=== PATIENT | female | born 1990 | race Caucasian/White ===

== ENCOUNTER → 2016-08-30 | Outpatient (CLI) | payer OTHER ==
[~2016-08-30] MED LIST: AMOX875T PO; BCPILLS PO; CITA20TA9 PO; OXYC-57 PO
== END | disposition home or self-care (01) ==
LOC: C.PAPS 13:48
PROVIDERS: ATTEND Physician Assistant
DX: Z12.4 Encounter for screening for malignant neoplasm of cervix (principal)

== ENCOUNTER 2017-03-07 09:14 | Inpatient (IN) | payer OTHER ==
[~2017-03-07] VITALS: Ht 162.6 cm; Wt 64.1 kg
[2017-03-07] MEDS ORDERED: BCPILLS PO (09:32)
[2017-03-07] MEDS ORDERED: CITA20TA9 PO (09:32)
[2017-03-07] MEDS ORDERED: SODIUM CHLORIDE 0.9% 1000ML 1,000 ML IV STA (09:47)
[2017-03-07] MEDS ORDERED: KETOROLAC TROMETHAMINE 30 MG/ML VIAL IV STA (09:47)
--- NOTE | 2017-03-07 09:54 | EMERGENCY ROOM VISIT NOTE ---
History Report prepared by Ej: Francisco Calderón Under the Supervision of: Dr. Silvano Quintanilla M.D. First contact with patient: 09:43 Chief Complaint: ABDOMINAL PAIN Stated Complaint: ABD PAIN Nursing Triage Summary: pt reports abd cramping started tuesday night. denies any n/v/d/c History of Present Illness The patient is a 27 year old female who presents to the Emergency Room with complaints of worsening mid abdominal pain that began 5 days ago. She rates her pain an 8/10 in severity. When her pain began, it was occurring intermittently. However, two days ago it became constant. Her pain is exacerbated with bending down to her right side. Nothing has been making her pain better. She is also experiencing nausea. She denies any fevers, chills, nausea, vomiting, diarrhea, or abnormal urinary symptoms. She has not had much of an appetite but has been keeping up with her fluids. Her last menstrual cycle was two days ago. She has not taken any medications for her pain. She states that she has been evaluated in the past before for similar symptoms, but has not had any official diagnosis. Source of History: patient Onset: 5 days ago Position: abdomen (mid) Symptom Intensity: 8/10 Quality: sharp Timing: constant, worsening Modifying Factors (Worsening): movement (bending down to her right) Associated Symptoms: No fevers, No chills, No nausea, No vomiting, No diarrhea, No urinary symptoms Note: She has not had much of an appetite. Review of Systems See HPI for pertinent positives and negatives. A total of ten systems were reviewed and were otherwise negative. Past Medical & Surgical Medical Problems: (1) No Known Active Medical Problems Family History Patient reports no known family medical history. Social History Smoking Status: Never Smoker Smokeless Tobacco Use: No Drug Use: none Marital Status: Current/Historical Medications Scheduled Control Pills ( Control Pills), 1 TAB PO DAILY Citalopram Hydrobromide (Celexa), 20 MG PO DAILY Allergies Coded Allergies: No Known Allergies (Unverified , 03/07/17) Physical Exam Vital Signs Date Time Temp Pulse Resp B/P (MAP) Pulse Ox O2 Delivery O2 Flow Rate FiO2 03/07/17 16:00 37.2 118 18 131/80 (97) 97 Room Air 03/07/17 15:54 36.7 112 18 113/81 98 03/07/17 15:04 112 18 113/81 98 Room Air 03/07/17 14:00 107 18 117/78 97 Room Air 03/07/17 12:06 101 20 98/63 98 Room Air 03/07/17 10:14 102 03/07/17 09:15 36.7 125 18 127/85 99 Room Air Physical Exam GENERAL: Awake, alert, relatively well-appearing, in no distress HENT: Normocephalic, atraumatic. Oropharynx unremarkable. EYES: Normal conjunctiva. Sclera non-icteric. NECK: Supple. No nuchal rigidity. FROM. No JVD. RESPIRATORY: Clear to auscultation. CARDIAC: Regular rate, normal rhythm. Extremities warm and well perfused. Pulses equal. ABDOMEN: Soft, non-distended. Mild RLQ tenderness to palpation. No rebound or guarding. No masses. No peritoneal sings. Negative Garcia's, Rovsing's, and Psoas signs. RECTAL: Deferred. MUSCULOSKELETAL: Chest examination reveals no tenderness. The back is symmetrical on inspection without obvious abnormality. There is no CVA tenderness to palpation. No joint edema. LOWER EXTREMITIES: Calves are equal size bilaterally and non-tender. No edema. No discoloration. NEURO: Normal sensorium. No sensory or motor deficits noted. SKIN: No rash or jaundice noted. Medical Decision & Procedures ER Provider Diagnostic Interpretation: Radiology results as stated below per my review and radiologist interpretation: PELVIC COMPLETE NON OB CLINICAL HISTORY: RLQ pain PAIN COMPARISON STUDY: None FINDINGS: The uterus measured 7.0 cm. The endometrial stripe measured 5 mm. The right ovary measured 3 cm maximum dimension. Several small subcentimeters follicular cyst. Normal vascular flow.. The left ovary measured 3.3 cm at maximum with several small subcentimeter follicular cysts. Normal vascular flow. 2.5 x 2.3 cm simple cyst.. There is no ultrasonographic evidence of ovarian torsion. It should be noted that ovarian torsion can be present with normal Doppler ultrasonographic findings. There was no evidence of pathologic free pelvic fluid. IMPRESSION: 1. Small bilateral ovarian follicular cyst. 2. 2.5 cm simple left ovarian cyst. 3. Normal vascular flow to both ovaries is confirmed. The above report was generated using voice recognition software. It may contain grammatical, syntax or spelling errors. Electronically signed by: Favian Marcum M.D. 03/07/2017 11:10 AM Dictated Date/Time: 03/07/2017 11:[address] OF THE ABDOMEN AND PELVIS WITH CONTRAST CLINICAL HISTORY: Right lower quadrant abdominal pain. COMPARISON STUDY: Pelvic ultrasound performed earlier today. TECHNIQUE: Following IV administration of 93 mL of Optiray-320, axial images of the abdomen and pelvis were obtained from the lung bases to the proximal femurs. Images were reviewed in the axial, sagittal, and coronal planes. IV contrast was administered without complication. A dose lowering technique was utilized adhering to the principles of ALARA. CT DOSE: 451.68 mGycm FINDINGS: The liver, spleen, adrenal glands, kidneys and pancreas are normal. There is no biliary or pancreatic ductal dilatation. Major vasculature of the abdomen and pelvis is patent. The proximal appendix is mildly dilated, measuring 1.1 cm in caliber. Of note, there is extensive inflammation centered on the appendiceal tip with an associated 2.6 cm rim-enhancing periappendiceal fluid collection. This could reflect a portion of the appendix. This suggests a periappendiceal abscess. There are multiple mildly enlarged ileocolic lymph nodes which are likely reactive. There is a small amount of fluid within the right paracolic gutter. A small amount of fluid within the pelvis is noted. There is a left ovarian cyst. There is no bowel obstruction. No pneumatosis, free air or portal venous gas is present. There are no suspicious osseous lesions. IMPRESSION: Findings suggestive of perforated acute appendicitis with a 2.6 cm periappendiceal abscess located anterior to the right iliac vessels. Extensive adjacent inflammation and small amount of fluid within the right paracolic gutter and pelvis. Findings discussed with Dr. Quintanilla at time of dictation. Electronically signed by: Hever Simeon M.D. 03/07/2017 2:06 PM Dictated Date/Time: 03/07/2017 1:59 PM Laboratory Results 03/07/17 09:50 Red Blood Count 4.83, Mean Corpuscular Volume 92.5, Mean Corpuscular Hemoglobin 32.5, Mean Corpuscular Hemoglobin Concent 35.1, Mean Platelet Volume 10.4, Neutrophils (%) (Auto) 81.5, Lymphocytes (%) (Auto) 8.5, Monocytes (%) (Auto) 9.3, Eosinophils (%) (Auto) 0.1, Basophils (%) (Auto) 0.1, Neutrophils # (Auto) 18.06, Lymphocytes # (Auto) 1.88, Monocytes # (Auto) 2.07, Eosinophils # (Auto) 0.03, Basophils # (Auto) 0.02 03/07/17 09:50 Test 03/07/17 09:50 03/07/17 12:00 White Blood Count 22.16 K/uL (4.8-10.8) Red Blood Count 4.83 M/uL (4.2-5.4) Hemoglobin 15.7 g/dL (12.0-16.0) Hematocrit 44.7 % (37-47) Mean Corpuscular Volume 92.5 fL (80-100) Mean Corpuscular Hemoglobin 32.5 pg (25-34) Mean Corpuscular Hemoglobin Concent 35.1 g/dl (32-36) Platelet Count 223 K/uL (130-400) Mean Platelet Volume 10.4 fL (7.4-10.4) Neutrophils (%) (Auto) 81.5 % Lymphocytes (%) (Auto) 8.5 % Monocytes (%) (Auto) 9.3 % Eosinophils (%) (Auto) 0.1 % Basophils (%) (Auto) 0.1 % Neutrophils # (Auto) 18.06 K/uL (1.4-6.5) Lymphocytes # (Auto) 1.88 K/uL (1.2-3.4) Monocytes # (Auto) 2.07 K/uL (0.11-0.59) Eosinophils # (Auto) 0.03 K/uL (0-0.5) Basophils # (Auto) 0.02 K/uL (0-0.2) RDW Standard Deviation 39.8 fL (36.4-46.3) RDW Coefficient of Variation 11.7 % (11.5-14.5) Immature Granulocyte % (Auto) 0.5 % Immature Granulocyte # (Auto) 0.10 K/uL (0.00-0.02) Anion Gap 11.0 mmol/L (3-11) Est Creatinine Clear Calc Drug Dose 95.7 ml/min Estimated GFR () 123.5 Estimated GFR (Non- 106.6 BUN/Creatinine Ratio 10.3 (10-20) Calcium Level 9.4 mg/dl (8.5-10.1) Total Bilirubin 1.0 mg/dl (0.2-1) Direct Bilirubin 0.2 mg/dl (0-0.2) Aspartate Amino Transf (AST/SGOT) 15 U/L (15-37) Alanine Aminotransferase (ALT/SGPT) 16 U/L (12-78) Alkaline Phosphatase 73 U/L (45-117) Total Protein 8.3 gm/dl (6.4-8.2) Albumin 3.7 gm/dl (3.4-5.0) Lipase 90 U/L (73-393) Urine Color DK YELLOW Urine Appearance CLOUDY (CLEAR) Urine pH 5.5 (4.5-7.5) Urine Specific [place] 1.027 (1.000-1.030) Urine Protein 1+ (NEG) Urine Glucose (UA) NEG (NEG) Urine Ketones 4+ (NEG) Urine Occult Blood TRACE (NEG) Urine Nitrite NEG (NEG) Urine Bilirubin NEG (NEG) Urine Urobilinogen NEG (NEG) Urine Leukocyte Esterase NEG (NEG) Urine WBC (Auto) 1-5 /hpf (0-5) Urine RBC (Auto) 5-10 /hpf (0-4) Urine Hyaline Casts (Auto) 5-10 /lpf (0-5) Urine Epithelial Cells (Auto) >30 /lpf (0-5) Urine Bacteria (Auto) 1+ (NEG) Urine Test NEG (NEG) Laboratory results reviewed by me Medications Administered Medications (Trade) Dose Ordered Sig/Jan Route Start Time Stop Time Status Last Admin Dose Admin Sodium Chloride 1,000 ml @ 999 mls/hr Q1H1M STAT IV 03/07/17 09:47 03/07/17 10:47 DC 03/07/17 10:05 999 MLS/HR Ketorolac Tromethamine (Toradol Inj) 15 mg NOW STAT IV 03/07/17 09:47 03/07/17 09:53 DC 03/07/17 10:06 15 MG Piperacillin Sod/ Tazobactam Sod (Zosyn Iv) 3.375 gm NOW STAT IV 03/07/17 14:04 03/07/17 14:05 DC 03/07/17 14:56 3.375 GM ED Course 0943: The patient was evaluated in room B9. A complete history and physical exam was performed. 1408: Upon reexamination, the patient was resting. I discussed the test results and treatment plan with her. I discussed her case with Yasmine Garcia PA-C of the [facility] Service. The patient will be evaluated for further management. Medical Decision I reviewed the patient's past medical history, medications, and the nursing notes as described above. Differential diagnosis includes but is not limited to: ectopic , hemorrhagic ovarian cyst, ovarian torsion, UTI, pyelonephritis, ureteral stone, appendicitis, and gastroenteritis. The patient is a 27-year-old woman with a past medical history of question endometriosis presents to emergency department with right lower quadrant pain that his been ongoing since Tuesday per history of present illness. Patient reports decreased appetite but no nausea or vomiting. Has been able to drink. Arrival the patient is relatively well-appearing, in no acute distress, AFVSS. Exam the patient has mild right lower quadrant tenderness without any peritoneal signs. Negative Dumont, Rovsings, Paoas sign. I discussed with the patient plan for pelvic ultrasound initially to rule out any ovarian etiology however if negative will proceed with CT scan. WBC subsequently elevated to 22. Pelvic ultrasound without any right-sided findings to explain the patient's symptoms. Thus, CT was ordered and showed of perforated acute appendicitis with a 2.6 cm periappendiceal abscess. Patient was given IV Zosyn for complicated appendicitis and case was discussed with surgery team. Dr. Mayfield admitting the patient to the OR. Medication Reconcilliation Current Medication List: was personally reviewed by me Blood Pressure Screening Patient's blood pressure: Normal blood pressure Blood pressure disposition: Did not require urgent referral Consults Time Called: 1404 Consulting Physician: Yasmine Garcia PA-C [facility] Returned Call: 1408 I discussed the patient with her - She will evaluate the patient for further treatment. Impression Primary Impression: Perforated appendicitis Critical Care I have personally spent greater than 35 minutes of critical care time in the direct management of this patient. This includes bedside care, interpretation of diagnostic studies, and testing, discussion with consultants, patient, and family members, and other required patient management activities. This 35 minutes is in excess of all separately billable procedures. Scribe Attestation The scribe's documentation has been prepared under my direction and personally reviewed by me in its entirety. I confirm that the note above accurately reflects all work, treatment, procedures, and medical decision making performed by me. Departure Information Dispostion Being Evaluated By Hospitalist Referrals Rosalinda Resendez DO (PCP) Patient Instructions My [facility]
[2017-03-07 10:23] LABS: BASO % 0.1 %; BASO ABS # 0.02 K/uL (0-0.2); COMPLETE YES; EOS % 0.1 %; HEMATOCRIT 44.7 % (37-47); IG% 0.5 %; LYMPH % 8.5 %; LYMPH ABS # 1.88 K/uL (1.2-3.4); MEAN CELL VOLUME 92.5 fL (80-100); MEAN CORPUSCULAR HEMOGLOBIN 32.5 pg (25-34); MEAN CORPUSCULAR HGB CONC 35.1 g/dl (32-36); MEAN PLATELET VOLUME 10.4 fL (7.4-10.4); MONO % 9.3 %; NEUT % 81.5 %; PLATELET COUNT 223 K/uL (130-400); RED BLOOD COUNT 4.83 M/uL (4.2-5.4); WHITE BLOOD COUNT 22.16 K/uL (4.8-10.8)
[2017-03-07 10:33] LABS: BUN/CREATININE RATIO 10.3 (10-20); CALCIUM 9.4 mg/dl (8.5-10.1); CREATININE 0.77 mg/dl (0.60-1.20); POTASSIUM 3.6 mmol/L (3.5-5.1)
--- NOTE | 2017-03-07 11:11 | DIAGNOSTIC IMAGING REPORT ---
PELVIC COMPLETE NON OB CLINICAL HISTORY: RLQ pain PAIN COMPARISON STUDY: None FINDINGS: The uterus measured 7.0 cm. The endometrial stripe measured 5 mm. The right ovary measured 3 cm maximum dimension. Several small subcentimeters follicular cyst. Normal vascular flow.. The left ovary measured 3.3 cm at maximum with several small subcentimeter follicular cysts. Normal vascular flow. 2.5 x 2.3 cm simple cyst.. There is no ultrasonographic evidence of ovarian torsion. It should be noted that ovarian torsion can be present with normal Doppler ultrasonographic findings. There was no evidence of pathologic free pelvic fluid. IMPRESSION: 1. Small bilateral ovarian follicular cyst. 2. 2.5 cm simple left ovarian cyst. 3. Normal vascular flow to both ovaries is confirmed. The above report was generated using voice recognition software. It may contain grammatical, syntax or spelling errors. Electronically signed by: Favian Marcum M.D. 03/07/2017 11:10 AM Dictated Date/Time: 03/07/2017 11:08 AM
[2017-03-07 12:24] LABS: URINE APPEARANCE CLOUDY (CLEAR); URINE COLOR DK YELLOW; URINE EPITHELIAL CELL AUTO >30 /lpf (0-5); URINE NITRITE NEG (NEG); URINE PH 5.5 (4.5-7.5); URINE SPECIFIC GRAVITY 1.027 (1.000-1.030); UROBILINOGEN NEG (NEG); ZZUR CULT IF INDIC CLEAN CATCH YES
[2017-03-07 12:26] LABS: MANUAL MICROSCOPIC REQUIRED? NO; REVIEW REQ? YES
[2017-03-07 12:29] LABS: URINE BILIRUBIN NEG (NEG)
[2017-03-07] MEDS ORDERED: OPTIRAY 320 IV PRN (13:30)
[2017-03-07] MEDS ORDERED: PIPERACILLIN/TAZOBACTAM 3.375 GM/100ML D5W IV STA (14:04)
--- NOTE | 2017-03-07 14:08 | DIAGNOSTIC IMAGING REPORT ---
CT OF THE ABDOMEN AND PELVIS WITH CONTRAST CLINICAL HISTORY: Right lower quadrant abdominal pain. COMPARISON STUDY: Pelvic ultrasound performed earlier today. TECHNIQUE: Following IV administration of 93 mL of Optiray-320, axial images of the abdomen and pelvis were obtained from the lung bases to the proximal femurs. Images were reviewed in the axial, sagittal, and coronal planes. IV contrast was administered without complication. A dose lowering technique was utilized adhering to the principles of ALARA. CT DOSE: 451.68 mGycm FINDINGS: The liver, spleen, adrenal glands, kidneys and pancreas are normal. There is no biliary or pancreatic ductal dilatation. Major vasculature of the abdomen and pelvis is patent. The proximal appendix is mildly dilated, measuring 1.1 cm in caliber. Of note, there is extensive inflammation centered on the appendiceal tip with an associated 2.6 cm rim-enhancing periappendiceal fluid collection. This could reflect a portion of the appendix. This suggests a periappendiceal abscess. There are multiple mildly enlarged ileocolic lymph nodes which are likely reactive. There is a small amount of fluid within the right paracolic gutter. A small amount of fluid within the pelvis is noted. There is a left ovarian cyst. There is no bowel obstruction. No pneumatosis, free air or portal venous gas is present. There are no suspicious osseous lesions. IMPRESSION: Findings suggestive of perforated acute appendicitis with a 2.6 cm periappendiceal abscess located anterior to the right iliac vessels. Extensive adjacent inflammation and small amount of fluid within the right paracolic gutter and pelvis. Findings discussed with Dr. Quintanilla at time of dictation. Electronically signed by: Hever Simeon M.D. 03/07/2017 2:06 PM Dictated Date/Time: 03/07/2017 1:59 PM
--- NOTE | 2017-03-07 15:58 | Surgery Consultation ---
Consultation Date of Consultation: Mar 07, 2017. Attending Physician: History of Present Illness The patient is a 27 year old female who presents to the Emergency Room with complaints of worsening mid abdominal pain that began 5 days ago. She rates her pain an 8/10 in severity. When her pain began, it was occurring intermittently. However, two days ago it became constant. Her pain is exacerbated with bending down to her right side. Nothing has been making her pain better. She is also experiencing nausea. She denies any fevers, chills, nausea, vomiting, diarrhea, or abnormal urinary symptoms. She has not had much of an appetite but has been keeping up with her fluids. Her last menstrual cycle was two days ago. She has not taken any medications for her pain. She states that she has been evaluated in the past before for similar symptoms, but has not had any official diagnosis. I saw pt at ER, I reviewed history and physical exam with pt,pt is still have RLQ pain, Past Medical/Surgical History Medical Problems: (1) Perforated appendicitis Status: Acute Family History Patient reports no known family medical history. Social History Smoking Status: Never Smoker Smokeless Tobacco Use: No Drug Use: none Marital Status: Allergies Coded Allergies: No Known Allergies (Unverified , 03/07/17) Home Medications Scheduled Control Pills ( Control Pills), 1 TAB PO DAILY Citalopram Hydrobromide (Celexa), 20 MG PO DAILY Current Inpatient Medications Current Inpatient Medications Medications (Trade) Dose Ordered Sig/Jan Route Start Time Stop Time Status Last Admin Dose Admin Ioversol (Optiray 320) 100 ml UD PRN IV 03/07/17 13:30 03/11/17 13:29 Review of Systems Constitutional: No fever, No chills, No sweats, No weight loss, No weakness, No fatigue, No problem reported Eyes: No worsening of vision, No eye pain, No redness, No discharge, No diplopia, No problem reported ENT: No hearing loss, No unusual epistaxis, No nasal symptoms, No sore throat, No tinnitus, No dental problems, No trouble swallowing, No problem reported Respiratory: No cough, No sputum, No wheezing, No shortness of breath, No dyspnea on exertion, No dyspnea at rest, No hemoptysis, No problem reported Cardiovascular: No chest pain, No orthopnea, No PND, No edema, No claudication , No palpitations, No problem reported Abdomen: + pain, + nausea Musculoskeletal: No joint pain, No muscle pain, No swelling, No calf pain, No problem reported Genitourinary - Female: No dysuria, No urinary frequency, No urinary urgency, No urinary incontinence, No urinary retention, No hematuria, No dysmenorrhea, No menorrhagia, No metrorrhagia, No rash, No vaginal bleeding, No vaginal discharge, No vaginal itching, No vulvodynia, No , No problem reported Neurologic: No memory loss, No paralysis, No weakness, No numbness/tingling, No vertigo, No balance problems, No problem reported Psychiatric: No depression symptoms, No anhedonism, No anxiety, No insomnia, No substance abuse, No problem reported Endocrine: No fatigue, No excessive thirst, No excessive urination, No problem reported Hematologic / Lymphatic: No abnormal bleeding/bruising, No clotting problems, No swollen lymph nodes, No night sweats, No problem reported Physical Exam Date Time Temp Pulse Resp B/P (MAP) Pulse Ox O2 Delivery O2 Flow Rate FiO2 03/07/17 15:04 112 18 113/81 98 Room Air 03/07/17 14:00 107 18 117/78 97 Room Air 03/07/17 12:06 101 20 98/63 98 Room Air 03/07/17 10:14 102 03/07/17 09:15 36.7 125 18 127/85 99 Room Air General Appearance: WD/WN, + mild distress Head: normocephalic Eyes: normal inspection ENT: normal ENT inspection Neck: supple, no JVD Respiratory/Chest: chest non-tender, lungs clear Cardiovascular: regular rate, rhythm, no edema, no gallop, no JVD, no murmur Abdomen/GI: normal bowel sounds, no organomegaly, no pulsatile mass, + tenderness (At RLQwith rebound pain) Extremities/Musculoskelatal: normal inspection, no calf tenderness, normal capillary refill Neurologic/Psych: no motor/sensory deficits, alert, normal mood/affect Skin: normal color, warm/dry, no rash Laboratory Results Last 24 Hours Test 03/07/17 09:50 03/07/17 12:00 White Blood Count 22.16 K/uL Red Blood Count 4.83 M/uL Hemoglobin 15.7 g/dL Hematocrit 44.7 % Mean Corpuscular Volume 92.5 fL Mean Corpuscular Hemoglobin 32.5 pg Mean Corpuscular Hemoglobin Concent 35.1 g/dl Platelet Count 223 K/uL Mean Platelet Volume 10.4 fL Neutrophils (%) (Auto) 81.5 % Lymphocytes (%) (Auto) 8.5 % Monocytes (%) (Auto) 9.3 % Eosinophils (%) (Auto) 0.1 % Basophils (%) (Auto) 0.1 % Neutrophils # (Auto) 18.06 K/uL Lymphocytes # (Auto) 1.88 K/uL Monocytes # (Auto) 2.07 K/uL Eosinophils # (Auto) 0.03 K/uL Basophils # (Auto) 0.02 K/uL RDW Standard Deviation 39.8 fL RDW Coefficient of Variation 11.7 % Immature Granulocyte % (Auto) 0.5 % Immature Granulocyte # (Auto) 0.10 K/uL Sodium Level 134 mmol/L Potassium Level 3.6 mmol/L Chloride Level 99 mmol/L Carbon Dioxide Level 24 mmol/L Anion Gap 11.0 mmol/L Blood Urea Nitrogen 8 mg/dl Creatinine 0.77 mg/dl Est Creatinine Clear Calc Drug Dose 95.7 ml/min Estimated GFR () 123.5 Estimated GFR (Non- 106.6 BUN/Creatinine Ratio 10.3 Random Glucose 105 mg/dl Calcium Level 9.4 mg/dl Total Bilirubin 1.0 mg/dl Direct Bilirubin 0.2 mg/dl Aspartate Amino Transf (AST/SGOT) 15 U/L Alanine Aminotransferase (ALT/SGPT) 16 U/L Alkaline Phosphatase 73 U/L Total Protein 8.3 gm/dl Albumin 3.7 gm/dl Lipase 90 U/L Urine Color DK YELLOW Urine Appearance CLOUDY Urine pH 5.5 Urine Specific [employer] 1.027 Urine Protein 1+ Urine Glucose (UA) NEG Urine Ketones 4+ Urine Occult Blood TRACE Urine Nitrite NEG Urine Bilirubin NEG Urine Urobilinogen NEG Urine Leukocyte Esterase NEG Urine WBC (Auto) 1-5 /hpf Urine RBC (Auto) 5-10 /hpf Urine Hyaline Casts (Auto) 5-10 /lpf Urine Epithelial Cells (Auto) >30 /lpf Urine Bacteria (Auto) 1+ Urine Test NEG Assessment & Plan CT DOSE: 451.68 mGycm FINDINGS: The liver, spleen, adrenal glands, kidneys and pancreas are normal. There is no biliary or pancreatic ductal dilatation. Major vasculature of the abdomen and pelvis is patent. The proximal appendix is mildly dilated, measuring 1.1 cm in caliber. Of note, there is extensive inflammation centered on the appendiceal tip with an associated 2.6 cm rim-enhancing periappendiceal fluid collection. This could reflect a portion of the appendix. This suggests a periappendiceal abscess. There are multiple mildly enlarged ileocolic lymph nodes which are likely reactive. There is a small amount of fluid within the right paracolic gutter. A small amount of fluid within the pelvis is noted. There is a left ovarian cyst. There is no bowel obstruction. No pneumatosis, free air or portal venous gas is present. There are no suspicious osseous lesions. IMPRESSION: Findings suggestive of perforated acute appendicitis with a 2.6 cm periappendiceal abscess located anterior to the right iliac vessels. Extensive adjacent inflammation and small amount of fluid within the right paracolic gutter and pelvis. Findings discussed with Dr. Quintanilla at time of dictation. Assessment, pt is a 27 yo female who presents to ER for 5 days abdominal mpain, CT scan- finding see above. IMP: perforated appendicitis, with abscess, Plan, I recommend to do laparoscopic appendectomy, possible open, D/W benefits, risks and alternatives of the procedure, the risks -infection, bleeding, abscess , sepsis, injury bowel pt understood, she agrees with the plan, I answered all questions.
[2017-03-07] MEDS ORDERED: EpHEDrine SULFATE INJ 50 MG/ML AMP IV PRN (16:00)
[2017-03-07] MEDS ORDERED: ONDANSETRON INJ 2 MG/ML 2 ML VIAL IV PRN ×2 (16:00→19:15)
[2017-03-07] MEDS ORDERED: MoRPHine SULFATE 10 MG/ML CARP/VIAL IV PRN (16:00)
[2017-03-07] MEDS ORDERED: ATROPINE SULFATE 0.1 MG/ML 5ML SYR IV PRN (16:00)
[2017-03-07] MEDS ORDERED: MEPERIDINE HCL 25 MG/ML CARP IV PRN (16:00)
[2017-03-07] MEDS ORDERED: SUCCINYLCHOLINE CHLORIDE 20 MG/ML 10 ML VIAL IV ONE (16:05)
[2017-03-07] MEDS ORDERED: GLYCOPYRROLATE INJ 0.2 MG/ML VIAL ONE ×2 (16:05→18:12)
[2017-03-07] MEDS ORDERED: PHENYLEPHRINE HCL INJ 10 MG/ML VIAL ONE (16:05)
[2017-03-07] MEDS ORDERED: LIDOCAINE HCL 2% 2 ML VIAL (20MG/ML) ONE (16:05)
[2017-03-07] MEDS ORDERED: ONDANSETRON INJ 2 MG/ML 2 ML VIAL ONE (16:05)
[2017-03-07] MEDS ORDERED: EpHEDrine SULFATE INJ 50 MG/ML AMP ONE (16:05)
[2017-03-07] MEDS ORDERED: DEXAMETHASONE SOD INJ 4 MG/ML VIAL ONE (16:05)
[2017-03-07] MEDS ORDERED: PROPOFOL IV EMULSION 10 MG/ML 20 ML VIAL IV ONE (16:05)
[2017-03-07] MEDS ORDERED: NEOSTIGMINE METHYLSULFATE 5 MG/5 ML SYR ONE (16:05)
[2017-03-07] MEDS ORDERED: FENTANYL CITRATE INJ 50 MCG/1 ML 2 ML VIAL ONE ×2 (16:08→17:33)
[2017-03-07] MEDS ORDERED: MIDAZOLAM HCL 1 MG/ML 2ML VIAL ONE (16:08)
[2017-03-07] MEDS ORDERED: LIDOCAINE HCL 1% 20 ML VIAL ONE (16:11)
[2017-03-07] MEDS ORDERED: BACITRACIN OINT 15 GM TUBE ONE (16:12)
[2017-03-07] MEDS ORDERED: BUPIVACAINE 0.5 % 5 MG/1 ML MPF 30ML VIAL ONE (16:12)
[2017-03-07] MEDS ORDERED: LACTATED RINGER'S 1000ML 1,000 ML IV SCH (16:20)
[2017-03-07] MEDS ORDERED: CEFOXITIN SOD 2 GM VIAL IV STA (16:28)
--- NOTE | 2017-03-07 16:28 | History & Physical Bridge Note ---
H&P Re-Evaluation Bridge Note: I have examined the patient, reviewed the History & Physical and in the interval since the performance of the History & Physical I have noted the following changes of clinical significance: No changes noted
[2017-03-07] MEDS ORDERED: NURSING VERBAL MED ORDER ONE (16:30)
[2017-03-07] MEDS ORDERED: CEFOXITIN IV 2,000 MG in SYRINGE 11 ML IV SCH (16:45)
--- NOTE | 2017-03-07 19:09 | [facility] Post Operative Brief Note ---
Immediate Operative Summary Operative Date Mar 07, 2017. Pre-Operative Diagnosis Acute perforated Appendicitis with abscess Post-Operative Diagnosis Acute Perforated Appendicitis with abcess Procedure(s) Performed Laparoscopic Appendectomy with JESSI drain Surgeon Dr. Mayfield Roper Operator Surgeon(s) none Estimated Blood Loss 10 ml Findings acute perforated appendicitis with abscess Fluids (cc crystalloids) 1000ml Specimens Microbiology Specimen 1. Appendix abcess-for routine culture per Dr. Mayfield Drains JESSI X 1 Anesthesia general Complication(s) None Disposition Recovery Room / PACU
[2017-03-07] MEDS ORDERED: HYDROmorphone INJ 1 MG/ML SYR IV PRN (19:15)
--- NOTE | 2017-03-07 19:34 | Anesthesiology Progress Note ---
Anesthesia Post Op Note Date & Time Mar 07, 2017 at 19:34 Vital Signs Pain Intensity: 3.0 Vital Signs Past 12 Hours Date Time Temp Pulse Resp B/P (MAP) Pulse Ox O2 Delivery O2 Flow Rate FiO2 03/07/17 16:00 37.2 118 18 131/80 (97) 97 Room Air 03/07/17 15:54 36.7 112 18 113/81 98 03/07/17 15:04 112 18 113/81 98 Room Air 03/07/17 14:00 107 18 117/78 97 Room Air 03/07/17 12:06 101 20 98/63 98 Room Air 03/07/17 10:14 102 03/07/17 09:15 36.7 125 18 127/85 99 Room Air Notes Mental Status: alert / awake / arousable, participated in evaluation Pt Amnestic to Procedure: Yes Nausea / Vomiting: adequately controlled Pain: adequately controlled Airway Patency, RR, SpO2: stable & adequate BP & HR: stable & adequate Hydration State: stable & adequate Anesthetic Complications: no major complications apparent
[2017-03-07] MEDS: FENTANYL CITRATE INJ 50 MCG/1 ML 2 ML VIAL IV PRN ×4 (19:36→19:57)
[2017-03-07 20:30] VITALS: BP 112/74; PULSE 95; TEMP 37.4; O2SAT 96; Ht 162.6 cm; Wt 64.1 kg
[2017-03-07 21:00] VITALS: BP 104/69; PULSE 95; TEMP 37.4; O2SAT 95
[2017-03-07] MEDS: OXYCODONE/ACETAMINOPHEN 5-325 TAB PO PRN (21:09)
--- NOTE | 2017-03-07 21:09 | OPERATIVE REPORT ---
DATE OF OPERATION: 03/07/2017 PREOPERATIVE DIAGNOSIS: Acute perforated appendicitis with abscess. POSTOPERATIVE DIAGNOSIS: Same. PROCEDURE: Laparoscopic appendectomy, JESSI drainage. SURGEON: Ramon Mayfield MD. ANESTHESIA: General. ESTIMATED BLOOD LOSS: About 10 mL. FINDINGS: Acute perforated appendicitis with abscess. COMPLICATIONS: None. INDICATIONS FOR THE PROCEDURE: This is a 27-year-old female who presented to the ER with a 5 day history of lower abdominal pain. The patient had a CT scan diagnosis of a perforated appendicitis with abscess and I recommend to do laparoscopic appendectomy, possible open. I did talk to the patient about the benefit, risks and alternate procedure. I indicated the risks may include but not limited such as bleeding, infection, injury to the bowel, abscess, may need more procedure, bile leak from the staple line, sepsis. The patient understands. She signed informed consent. She agreed to proceed with the procedure. I answered all questions. DETAILS OF PROCEDURE: We brought the patient to the OR, put the patient in the supine position. The patient received SCD on bilateral legs to prevent DVT. Also, the patient received 2 gram cefoxitin IV for prophylactic antibiotic. The patient received general anesthesia without difficulty. The abdomen was prepped and draped in routine sterile fashion. After a timeout, I injected local anesthesia just above umbilicus by using 1% lidocaine mixed with 0.5% Marcaine. Then I made a small incision, opened the fascia, opened peritoneum under direct vision. I put a Omari trocar in, connected to CO2 to create pneumoperitoneum. Flow rate at 6 liter per minute, pressure, not more than 14 mmHg. Once we got a nice pneumoperitoneum, we put another two 5 mm trocar on the left lower quadrant. Then we looked around the abdomen showing normal findings on the stomach, liver, small bowel; however, significant abscess around the appendix and at this moment, we mobilized the appendix, opened the abscess, there was small amount of fluid coming out. We suctioned out to send to the culture and then we mobilized the base of the appendix, put a 45 mm Endo-MARTHA staple, transected around the base of the appendix and then we used harmonic to take down the appendiceal. Appendix looked significantly inflamed and gangrene. Rechecked, no active bleeding from the staple line and no leak from the staple line and then we removed the appendix through the catcher bag. Then we reinserted Omari trocar in and put the JESSI drainage. We used 2-0 silk to fix the JESSI drain on the skin. Then we removed all trocar under direct vision. No active bleeding from trocar sites. The pneumoperitoneum was released. Then I closed the umbilical incision, fascial layer by using #1 Vicryl [id number] x2, closed subcutaneous layer by using 2-0 Vicryl interruptedly and closed skin by using 4-0 Vicryl continuous running. Closed another two 5 mm trocar site skin only by using 4-0 Vicryl. We put the dressing on. The patient tolerated the procedure well. All the instrument, needle and sponge count correct x2 at the end of case. The patient transferred to recovery room in stable condition. After the procedure, I did talk to the patient's family member about the OR finding and procedure we did, they understand. The patient will be admitted to the hospital and they agreed. I attest to the content of the Intraoperative Record and any orders documented therein. Any exceptions are noted below. MARIANELA
[2017-03-07 21:30] VITALS: BP 107/72; PULSE 96; TEMP 37.6; O2SAT 96
[2017-03-07] MEDS: METRONIDAZOLE / NSS 500 MG in PREMIXED NSS 100 ML IV SCH (22:15)
[2017-03-07] MEDS: ACETAMINOPHEN 325 MG TAB PO PRN (22:15)
[2017-03-07 22:30] VITALS: BP 115/65; PULSE 107; TEMP 36.7; O2SAT 93
[2017-03-07 23:30] VITALS: BP 94/52; PULSE 109; TEMP 37.6; O2SAT 95
[2017-03-08] VITALS (7 sets, daily range): BP systolic 93–114; BP diastolic 56–74; PULSE 90–109; TEMP 37.3–38.3; O2SAT 95–97
[2017-03-08] MEDS: CIPROFLOXACIN / D5W 400 MG in PREMIXED IN D5W 200 ML IV SCH ×2 (00:55→10:36)
[2017-03-08] MEDS: D5W AND 1/2NSS + 20MEQ KCL 1,000 ML IV SCH ×2 (03:23→16:15)
[2017-03-08] MEDS: METRONIDAZOLE / NSS 500 MG in PREMIXED NSS 100 ML IV SCH ×2 (05:27→12:52)
[2017-03-08] MEDS: OXYCODONE/ACETAMINOPHEN 5-325 TAB PO PRN ×3 (06:20→20:40)
[2017-03-08 09:02] LABS: BUN/CREATININE RATIO 10.4 (10-20); CALCIUM 8.2 mg/dl (8.5-10.1); CREATININE 0.63 mg/dl (0.60-1.20); POTASSIUM 3.9 mmol/L (3.5-5.1)
[2017-03-08 09:06] LABS: ALB/GLOB RATIO 0.7 (0.9-2)
--- NOTE | 2017-03-08 09:09 | Anesthesiology Progress Note ---
Anesthesia Post Op Note Date & Time Mar 08, 2017 at 09:08 Vital Signs Vital Signs Past 12 Hours Date Time Temp Pulse Resp B/P (MAP) Pulse Ox O2 Delivery O2 Flow Rate FiO2 03/08/17 07:19 37.3 98 16 107/71 (83) 96 Room Air 03/08/17 03:59 37.3 90 18 99/63 (75) 96 Room Air 03/08/17 00:30 Room Air 03/07/17 23:30 37.6 109 18 94/52 (66) 95 Room Air 03/07/17 22:30 36.7 107 16 115/65 (82) 93 Room Air 03/07/17 21:30 37.6 96 16 107/72 (84) 96 Room Air Notes Mental Status: alert / awake / arousable, participated in evaluation Pt Amnestic to Procedure: Yes Nausea / Vomiting: adequately controlled Pain: adequately controlled Airway Patency, RR, SpO2: stable & adequate BP & HR: stable & adequate Hydration State: stable & adequate Anesthetic Complications: no major complications apparent
[2017-03-08 09:36] LABS: BASO % 0.1 %; BASO ABS # 0.01 K/uL (0-0.2); COMPLETE YES; HEMATOCRIT 35.9 % (37-47); IG% 0.2 %; LYMPH % 5.3 %; LYMPH ABS # 0.91 K/uL (1.2-3.4); MEAN CELL VOLUME 92.5 fL (80-100); MEAN CORPUSCULAR HEMOGLOBIN 32.2 pg (25-34); MEAN CORPUSCULAR HGB CONC 34.8 g/dl (32-36); MEAN PLATELET VOLUME 10.1 fL (7.4-10.4); MONO % 9.6 %; NEUT % 84.8 %; PLATELET COUNT 203 K/uL (130-400); RED BLOOD COUNT 3.88 M/uL (4.2-5.4); WHITE BLOOD COUNT 17.03 K/uL (4.8-10.8)
--- NOTE | 2017-03-08 14:17 | Surgery Progress Note ---
Surgery Progress Note Date of Service Mar 08, 2017. Subjective Post OP Day: POD # 0 s/p laparoscopic appendectomy + feeling well, + pain controlled, No complaints, No SOB, No bowel movement, No flatus, No nausea, No vomiting abdominal gas pains Objective Vital Signs: Date Time Temp Pulse Resp B/P (MAP) Pulse Ox O2 Delivery O2 Flow Rate FiO2 03/08/17 10:48 37.4 97 18 114/74 (87) 97 Room Air 03/08/17 07:25 Room Air 03/08/17 07:19 37.3 98 16 107/71 (83) 96 Room Air 03/08/17 03:59 37.3 90 18 99/63 (75) 96 Room Air 03/08/17 00:30 Room Air 03/07/17 23:30 37.6 109 18 94/52 (66) 95 Room Air 03/07/17 22:30 36.7 107 16 115/65 (82) 93 Room Air 03/07/17 21:30 37.6 96 16 107/72 (84) 96 Room Air 03/07/17 21:00 37.4 95 16 104/69 (81) 95 Room Air 03/07/17 20:30 37.4 95 15 112/74 96 Room Air 03/07/17 20:30 37.4 95 15 112/74 (87) 96 Room Air 03/07/17 20:30 96 Room Air 03/07/17 20:15 94 16 113/73 100 Nasal Cannula 2 03/07/17 20:00 36.9 99 16 118/73 100 Nasal Cannula 2 03/07/17 19:50 102 16 120/81 100 Nasal Cannula 2 03/07/17 19:40 103 16 120/72 100 Oxymask 8 03/07/17 19:30 105 14 119/81 100 Oxymask 8 03/07/17 19:24 36.6 117 16 118/74 100 Oxymask 8 03/07/17 16:00 37.2 118 18 131/80 (97) 97 Room Air 03/07/17 15:54 36.7 112 18 113/81 98 03/07/17 15:04 112 18 113/81 98 Room Air Physical Exam: JESSI drainage (serosanguineous) General Appearance: WD/WN, no apparent distress Head: normocephalic, atraumatic Neck: trachea midline Respiratory/Chest: no respiratory distress, no accessory muscle use Abdomen: non distended, soft, + tenderness (appropriate post op) Incision(s): clean, dry, intact (dressing clean and dry, incisions not inspected on POD # 0) Laboratory Results: Results Past 24 Hours Test 03/08/17 08:24 Range/Units White Blood Count 17.03 4.8-10.8 K/uL Red Blood Count 3.88 4.2-5.4 M/uL Hemoglobin 12.5 12.0-16.0 g/dL Hematocrit 35.9 37-47 % Mean Corpuscular Volume 92.5 80-100 fL Mean Corpuscular Hemoglobin 32.2 25-34 pg Mean Corpuscular Hemoglobin Concent 34.8 32-36 g/dl Platelet Count 203 130-400 K/uL Mean Platelet Volume 10.1 7.4-10.4 fL Neutrophils (%) (Auto) 84.8 % Lymphocytes (%) (Auto) 5.3 % Monocytes (%) (Auto) 9.6 % Eosinophils (%) (Auto) 0.0 % Basophils (%) (Auto) 0.1 % Neutrophils # (Auto) 14.44 1.4-6.5 K/uL Lymphocytes # (Auto) 0.91 1.2-3.4 K/uL Monocytes # (Auto) 1.63 0.11-0.59 K/uL Eosinophils # (Auto) 0.00 0-0.5 K/uL Basophils # (Auto) 0.01 0-0.2 K/uL RDW Standard Deviation 39.4 36.4-46.3 fL RDW Coefficient of Variation 11.7 11.5-14.5 % Immature Granulocyte % (Auto) 0.2 % Immature Granulocyte # (Auto) 0.04 0.00-0.02 K/uL Sodium Level 139 136-145 mmol/L Potassium Level 3.9 3.5-5.1 mmol/L Chloride Level 107 98-107 mmol/L Carbon Dioxide Level 25 21-32 mmol/L Anion Gap 7.0 3-11 mmol/L Blood Urea Nitrogen 7 7-18 mg/dl Creatinine 0.63 0.60-1.20 mg/dl Est Creatinine Clear Calc Drug Dose 116.9 ml/min Estimated GFR () 143.5 Estimated GFR (Non- 123.8 BUN/Creatinine Ratio 10.4 10-20 Random Glucose 143 70-99 mg/dl Calcium Level 8.2 8.5-10.1 mg/dl Total Bilirubin 0.5 0.2-1 mg/dl Aspartate Amino Transf (AST/SGOT) 12 15-37 U/L Alanine Aminotransferase (ALT/SGPT) 13 12-78 U/L Alkaline Phosphatase 52 45-117 U/L Total Protein 6.3 6.4-8.2 gm/dl Albumin 2.5 3.4-5.0 gm/dl Globulin 3.8 2.5-4.0 gm/dl Albumin/Globulin Ratio 0.7 0.9-2 Microbiology Results 03/07/17 Gram Stain - Final, Resulted 03/07/17 Bacterial Culture, Resulted Pending Assessment & Plan POD # 0 s/p laparoscopic appendectomy with drain placement for perforated appendicitis -vitals stable - leukocytosis improving 17.03K today (22.16 last evening) - pain minimal and controlled - no nausea or vomiting Plan: Continue current pain management Continue IV fluids and IV antibiotics Await culture results Advance diet to clear liquids today, advised pt to take it easy JESSI drain to bulb suction Encourage OOB to chair and ambulation Incentive spirometry SCDs repeat am labs Dr. Mayfield has seen and examined patient agrees with above
[2017-03-08] MEDS: ACETAMINOPHEN 325 MG TAB PO PRN ×2 (16:16→20:41)
[2017-03-09] MEDS: D5W AND 1/2NSS + 20MEQ KCL 1,000 ML IV SCH ×3 (00:42→20:25)
[2017-03-09] MEDS: OXYCODONE/ACETAMINOPHEN 5-325 TAB PO PRN ×4 (00:46→23:49)
[2017-03-09 05:56] LABS: HEMATOCRIT 35.8 % (37-47); MEAN CELL VOLUME 95.2 fL (80-100); MEAN CORPUSCULAR HEMOGLOBIN 31.6 pg (25-34); MEAN CORPUSCULAR HGB CONC 33.2 g/dl (32-36); MEAN PLATELET VOLUME 10.1 fL (7.4-10.4); PLATELET COUNT 192 K/uL (130-400); RED BLOOD COUNT 3.76 M/uL (4.2-5.4)
[2017-03-09 06:22] LABS: BUN/CREATININE RATIO 7.9 (10-20); CALCIUM 7.5 mg/dl (8.5-10.1); CREATININE 0.69 mg/dl (0.60-1.20); POTASSIUM 3.7 mmol/L (3.5-5.1)
[2017-03-09 06:55] VITALS: BP 113/73; PULSE 131; TEMP 38.9; O2SAT 96
[2017-03-09] MEDS: ACETAMINOPHEN 325 MG TAB PO PRN (07:12)
[2017-03-09 08:40] VITALS: TEMP 37.5
--- NOTE | 2017-03-09 09:45 | Surgery Progress Note ---
Surgery Progress Note Date of Service Mar 09, 2017. Subjective Post OP Day: 1 + ambulating, + flatus, + pain controlled, + diet (tolerating clear liquids, low appetite), No chest pain, No SOB, No bowel movement, No nausea, No vomiting having moderate pain, controlled with PO Percocet every 4 hours Febrile last night Objective Vital Signs: Date Time Temp Pulse Resp B/P (MAP) Pulse Ox O2 Delivery O2 Flow Rate FiO2 03/09/17 06:55 38.9 131 21 113/73 (86) 96 Room Air 03/09/17 00:40 Room Air 03/08/17 22:57 37.5 108 18 93/56 (68) 95 Room Air 03/08/17 21:47 37.7 03/08/17 20:13 38.3 03/08/17 15:45 Room Air 03/08/17 15:26 37.5 109 17 99/61 (74) 95 Room Air 03/08/17 10:48 37.4 97 18 114/74 (87) 97 Room Air Physical Exam: JESSI drainage (serous) General Appearance: WD/WN, no apparent distress Head: normocephalic, atraumatic Neck: trachea midline Respiratory/Chest: no respiratory distress, no accessory muscle use Abdomen: non distended, soft, no organomegaly, no pulsatile mass, + tenderness (appropriate post op at incision sites, no peritonitis or rigidity) Incision(s): clean, dry, intact (dressings clean and dry, incisions not inspected) Laboratory Results: Results Past 24 Hours Test 03/09/17 05:31 Range/Units White Blood Count 14.10 4.8-10.8 K/uL Red Blood Count 3.76 4.2-5.4 M/uL Hemoglobin 11.9 12.0-16.0 g/dL Hematocrit 35.8 37-47 % Mean Corpuscular Volume 95.2 80-100 fL Mean Corpuscular Hemoglobin 31.6 25-34 pg Mean Corpuscular Hemoglobin Concent 33.2 32-36 g/dl RDW Standard Deviation 41.4 36.4-46.3 fL RDW Coefficient of Variation 12.1 11.5-14.5 % Platelet Count 192 130-400 K/uL Mean Platelet Volume 10.1 7.4-10.4 fL Sodium Level 138 136-145 mmol/L Potassium Level 3.7 3.5-5.1 mmol/L Chloride Level 108 98-107 mmol/L Carbon Dioxide Level 28 21-32 mmol/L Anion Gap 2.0 3-11 mmol/L Blood Urea Nitrogen 5 7-18 mg/dl Creatinine 0.69 0.60-1.20 mg/dl Est Creatinine Clear Calc Drug Dose 106.8 ml/min Estimated GFR () 139.2 Estimated GFR (Non- 120.1 BUN/Creatinine Ratio 7.9 10-20 Random Glucose 123 70-99 mg/dl Calcium Level 7.5 8.5-10.1 mg/dl Assessment & Plan POD # 1 s/p laparoscopic appendectomy with drain placement for perforated appendicitis - vitals stable however febrile last evening and this morning - leukocytosis improving 14.10K today (17.03K yesterday) - pain moderate and controlled - no nausea or vomiting Plan: Continue current pain management Continue Tylenol as needed for pain or fever Continue IV fluids Continue IV Antibiotics until discharge and then will switch to oral antibiotics Await culture results, many streptococcus species, sensitivity pending Continue clear liquids today, advised pt to take it easy Add Colace 100 mg BID PO JESSI drain to bulb suction Encourage OOB to chair and ambulation Incentive spirometry SCDs repeat am labs Dr. Mayfield has seen and examined patient, agrees with above
[2017-03-09 12:49] VITALS: TEMP 37.3
[2017-03-09] MEDS: CIPROFLOXACIN / D5W 400 MG in PREMIXED IN D5W 200 ML IV SCH ×2 (12:52→23:53)
[2017-03-09] MEDS: DOCUSATE SODIUM 100 MG CAP PO SCH ×2 (13:59→21:17)
[2017-03-09 15:47] VITALS: BP 112/76; PULSE 99; TEMP 37.9; O2SAT 96
[2017-03-09] MEDS: METRONIDAZOLE / NSS 500 MG in PREMIXED NSS 100 ML IV SCH (17:58)
[2017-03-09 20:26] VITALS: TEMP 37.5
[2017-03-09 23:11] VITALS: BP 105/70; PULSE 116; TEMP 37.7; O2SAT 96
[2017-03-10 01:31] VITALS: PULSE 101; TEMP 37.3
[2017-03-10] MEDS: METRONIDAZOLE / NSS 500 MG in PREMIXED NSS 100 ML IV SCH ×2 (01:59→09:32)
[2017-03-10] MEDS: OXYCODONE/ACETAMINOPHEN 5-325 TAB PO PRN ×3 (06:23→20:30)
[2017-03-10] MEDS: D5W AND 1/2NSS + 20MEQ KCL 1,000 ML IV SCH ×2 (06:24→21:13)
[2017-03-10 06:47] LABS: HEMATOCRIT 39.8 % (37-47); MEAN CELL VOLUME 94.8 fL (80-100); MEAN CORPUSCULAR HEMOGLOBIN 31.9 pg (25-34); MEAN CORPUSCULAR HGB CONC 33.7 g/dl (32-36); MEAN PLATELET VOLUME 9.8 fL (7.4-10.4); PLATELET COUNT 231 K/uL (130-400); WHITE BLOOD COUNT 11.09 K/uL (4.8-10.8)
[2017-03-10 07:02] VITALS: BP 114/76; PULSE 105; TEMP 37.3; O2SAT 98
[2017-03-10] MEDS: DOCUSATE SODIUM 100 MG CAP PO SCH ×2 (08:43→21:00)
--- NOTE | 2017-03-10 10:21 | Surgery Progress Note ---
Surgery Progress Note Date of Service Mar 10, 2017. Subjective Post OP Day: 2 (s/p laparoscopic appendectomy) + feeling well, + ambulating, + bowel movement, + flatus, + pain controlled, + diet (tolerating clear liquids), No complaints, No chest pain, No SOB, No nausea , No vomiting Objective Vital Signs: Date Time Temp Pulse Resp B/P (MAP) Pulse Ox O2 Delivery O2 Flow Rate FiO2 03/10/17 07:25 Room Air 03/10/17 07:02 37.3 105 15 114/76 (89) 98 Room Air 03/10/17 01:31 37.3 101 03/10/17 00:00 Room Air 03/09/17 23:11 37.7 116 16 105/70 (82) 96 Room Air 03/09/17 20:26 37.5 03/09/17 16:05 Room Air 03/09/17 15:47 37.9 99 16 112/76 (88) 96 Room Air 03/09/17 12:49 37.3 Physical Exam: JESSI drainage (serosanguineous) General Appearance: WD/WN, no apparent distress Head: normocephalic, atraumatic Neck: trachea midline Respiratory/Chest: no respiratory distress, no accessory muscle use Abdomen: non distended, soft, no organomegaly, no pulsatile mass, + tenderness (appropriate post op, improving) Incision(s): clean, dry, intact (dressings clean/dry, incisions not inspected) Laboratory Results: Results Past 24 Hours Test 03/10/17 06:23 Range/Units White Blood Count 11.09 4.8-10.8 K/uL Red Blood Count 4.20 4.2-5.4 M/uL Hemoglobin 13.4 12.0-16.0 g/dL Hematocrit 39.8 37-47 % Mean Corpuscular Volume 94.8 80-100 fL Mean Corpuscular Hemoglobin 31.9 25-34 pg Mean Corpuscular Hemoglobin Concent 33.7 32-36 g/dl RDW Standard Deviation 41.0 36.4-46.3 fL RDW Coefficient of Variation 12.0 11.5-14.5 % Platelet Count 231 130-400 K/uL Mean Platelet Volume 9.8 7.4-10.4 fL Assessment & Plan POD # 2 s/p laparoscopic appendectomy with drain placement for perforated appendicitis - vitals stable however febrile last evening Tmax 37.9 , afebrile this am - leukocytosis improving 11.09K today (14.10K yesterday) - pain mild-moderate and controlled, improving - no nausea or vomiting - Culture positive for streptococcus intermedius, no sensitivities Plan: Continue current pain management Continue Tylenol as needed for pain or fever Continue IV fluids , decrease to 50 mls/hr Continue IV Antibiotics until discharge and then will switch to oral antibiotics Will consult infectious disease for their input given continued fevers and no sensitivities for Streptococcus intermedius advance diet as tolerated Continue Colace 100 mg BID PO JESSI drain to bulb suction Encourage OOB to chair and ambulation Incentive spirometry SCDs repeat am labs Dr. Mayfield has seen and examined patient, agrees with above
[2017-03-10] MEDS: CIPROFLOXACIN / D5W 400 MG in PREMIXED IN D5W 200 ML IV SCH (10:37)
--- NOTE | 2017-03-10 13:47 | Progress Note ---
Progress Note Date of Service Mar 10, 2017. Progress Note ID Consult Dictated #[id number] A/P: 1. Peritonitis secondary to ruptured appendix 2. Leukocytosis - resolving 3. Fever -Will change abx to unasyn, when tolerating regular diet can change to po Augmentin 875mg po bid x 14 days total -Will follow, thank you
[2017-03-10] MEDS: AMPICILLIN/SULBACTAM SOD INJ 3,000 MG in SODIUM CHLORIDE 0.9% 100ML 100 ML IV SCH ×2 (14:18→20:30)
[2017-03-10 15:01] VITALS: BP 109/77; PULSE 98; TEMP 37.3; O2SAT 95
--- NOTE | 2017-03-10 15:02 | INFECT. DISEASE CONSULTATION ---
DATE OF CONSULTATION: 03/10/2017 DATE OF CONSULTATION: 03/10/2017 HISTORY OF PRESENT ILLNESS: This is a 27-year-old female who presented to the hospital with abdominal pain that began 5 days prior to admission. This continued to increase at home. She denies any fevers or chills associated with it. She did undergo a CAT scan in the Emergency Room which showed inflammation of the appendix with surrounding abscess. She was evaluated by surgery and taken to the operating room where she underwent appendectomy and washout. Intraoperative cultures were growing strep intermedius. No sensitivities were obtained. No blood cultures were obtained. She has had intermittent fever since admission to the hospital. She was initially afebrile. On the 4th she had a T-max of 37.6, on the she had a T-max of 38.3, on the she had a T-max of 38.9 and overnight she was 37.7. She states she was asymptomatic during this but does admit to having some chills 2 nights ago. She currently is afebrile. On my examination, she is out of bed to chair. She is eating clear liquids. She states her appetite is diminished, but she denies any nausea, vomiting or diarrhea. Overall, she states her pain is controlled and she is going for longer periods of time prior to the pain medication. A JESSI drain remains in place. She is being followed by surgery. Infectious diseases was asked to see this patient for intermittent fever. She did initially have a leukocytosis of 22,000. This has improved to Levaquin. She has been on IV Cipro and Flagyl since admission to the hospital. All remaining review of systems are reviewed and are unremarkable except or as noted above. She denies any past medical or surgical history. FAMILY HISTORY: Noncontributory. SOCIAL HISTORY: Negative for drug use, alcohol use or tobacco use. ALLERGIES: She has no known drug allergies. MEDICATIONS: Include Flagyl, Cipro, Colace, Zofran, Tylenol, Percocet, Dilaudid. PHYSICAL EXAMINATION: VITAL SIGNS: She currently is afebrile. T-max overnight is 37.7, fever curve has overall improved, pulse 105, respiratory rate is 15, blood pressure is 114/76, oxygen saturation is 98% on room air. GENERAL: She is awake, alert and oriented x3. She is in distress. HEAD, EYES, EARS, NOSE, AND THROAT: Mucous membranes are moist. Extraocular muscles are intact. HEART: Regular. LUNGS: Clear. ABDOMEN: Soft. Abdominal dressing is clean, dry and intact. JESSI drain in place with minimal serosanguineous fluid. There is no tenderness to light palpation. EXTREMITIES: There is no lower extremity bilaterally. SKIN: Without rash. LABORATORY STUDIES: CBC today reveals a white blood cell count of 11.0, hemoglobin 13.4, platelets of 231. Chemistry panel reveals a sodium of 138, potassium 3.7, chloride 108, bicarbonate 28, BUN 5, creatinine 0.6, glucose is 123. LFTs within normal limits. Urinalysis was unremarkable. Urine culture was contaminated. OR culture is growing Strep intermedius with no sensitives to be performed. Imaging is as above. ASSESSMENT AND PLAN: 1. Peritonitis secondary to perforated viscus. 2. Leukocytosis, improving. 3. Fever. At this time, I will change her to Unasyn and she will remain on IV antibiotics until she is able to tolerate p.o. diet. When she can tolerate p.o. She can be changed to Augmentin 875 mg twice daily with food for a total of 14 days. I will follow along with you. Thank you for this consultation.
[2017-03-10 23:12] VITALS: BP 111/74; PULSE 81; TEMP 37.4; O2SAT 98
[2017-03-11] MEDS: AMPICILLIN/SULBACTAM SOD INJ 3,000 MG in SODIUM CHLORIDE 0.9% 100ML 100 ML IV SCH ×4 (02:06→20:05)
[2017-03-11] MEDS: OXYCODONE/ACETAMINOPHEN 5-325 TAB PO PRN ×3 (03:59→22:37)
[2017-03-11 07:46] VITALS: BP 118/80; PULSE 97; TEMP 36.8; O2SAT 97
[2017-03-11 08:39] LABS: HEMATOCRIT 42.5 % (37-47); MEAN CORPUSCULAR HEMOGLOBIN 31.9 pg (25-34); MEAN CORPUSCULAR HGB CONC 34.4 g/dl (32-36); MEAN PLATELET VOLUME 9.9 fL (7.4-10.4); PLATELET COUNT 274 K/uL (130-400); RED BLOOD COUNT 4.57 M/uL (4.2-5.4); WHITE BLOOD COUNT 8.24 K/uL (4.8-10.8)
[2017-03-11] MEDS: DOCUSATE SODIUM 100 MG CAP PO SCH ×2 (09:00→20:00)
[2017-03-11 09:10] VITALS: O2SAT 97
--- NOTE | 2017-03-11 10:01 | Progress Note ---
Subjective Date of Service: Mar 11, 2017. Subjective Pt evaluation today including: conversation w/ patient, physical exam, chart review, lab review pt afebrile overnight, oob to gianni this am, states she is feeling better. pain controlled. tolerating clears, no n/v/d, ready to eat regular food. abx changed to unasyn, tolerating well. wbc 8 today. drain remains in place. no cough, no cp , no sob. all remaining ros reviewed and are negative. Problem List Medical Problems: (1) Perforated appendicitis Status: Acute Objective Vital Signs Date Time Temp Pulse Resp B/P (MAP) Pulse Ox O2 Delivery O2 Flow Rate FiO2 03/11/17 09:10 97 Room Air 03/11/17 07:46 36.8 97 20 118/80 (93) 97 Room Air 03/11/17 00:00 Room Air 03/10/17 23:12 37.4 81 16 111/74 (86) 98 Room Air 03/10/17 15:15 Room Air 03/10/17 15:01 37.3 98 18 109/77 (88) 95 Room Air Physical Exam General Appearance: WD/WN, no apparent distress Eyes: normal inspection, EOMI Neck: supple Respiratory/Chest: lungs clear Cardiovascular: regular rate, rhythm, no edema Abdomen: soft, + pertinent finding (drain in place, min drainage, dressing intact) Extremities: non-tender, no pedal edema Neurologic/Psychiatric: alert, oriented x 3 Skin: normal color, no rash Laboratory Results Item Value Date Time Gram Stain - Final Resulted 03/07/17 1842 Appendix Last 24 Hours Test 03/11/17 08:14 White Blood Count 8.24 K/uL Red Blood Count 4.57 M/uL Hemoglobin 14.6 g/dL Hematocrit 42.5 % Mean Corpuscular Volume 93.0 fL Mean Corpuscular Hemoglobin 31.9 pg Mean Corpuscular Hemoglobin Concent 34.4 g/dl RDW Standard Deviation 39.6 fL RDW Coefficient of Variation 11.8 % Platelet Count 274 K/uL Mean Platelet Volume 9.9 fL Assessment and Plan (1) Perforated appendicitis Assessment & Plan: continue unasyn for now, when eating can change to augmentin 875mg po bid with food for total of 14 days post op. no contraindication to d/c from ID standpoint.
--- NOTE | 2017-03-11 10:02 | Surgery Progress Note ---
Surgery Progress Note Date of Service Mar 11, 2017. Subjective Post OP Day: 3 (s/p laparoscopic appendectomy) + feeling well, + ambulating, + bowel movement, + flatus, + pain controlled, + diet (tolerating full liquids), No complaints, No chest pain, No SOB, No nausea , No vomiting Objective Vital Signs: Date Time Temp Pulse Resp B/P (MAP) Pulse Ox O2 Delivery O2 Flow Rate FiO2 03/11/17 09:10 97 Room Air 03/11/17 07:46 36.8 97 20 118/80 (93) 97 Room Air 03/11/17 00:00 Room Air 03/10/17 23:12 37.4 81 16 111/74 (86) 98 Room Air 03/10/17 15:15 Room Air 03/10/17 15:01 37.3 98 18 109/77 (88) 95 Room Air Physical Exam: JESSI drainage (serous) General Appearance: WD/WN, no apparent distress Head: normocephalic, atraumatic Neck: trachea midline Respiratory/Chest: lungs clear, normal breath sounds, no respiratory distress, no accessory muscle use Cardiovascular: no murmur, + tachycardia Abdomen: non tender, non distended, soft, no organomegaly, no pulsatile mass Incision(s): clean, dry, intact, no erythema, no drainage (dressing clean/dry/ intact) Laboratory Results: Results Past 24 Hours Test 03/11/17 08:14 Range/Units White Blood Count 8.24 4.8-10.8 K/uL Red Blood Count 4.57 4.2-5.4 M/uL Hemoglobin 14.6 12.0-16.0 g/dL Hematocrit 42.5 37-47 % Mean Corpuscular Volume 93.0 80-100 fL Mean Corpuscular Hemoglobin 31.9 25-34 pg Mean Corpuscular Hemoglobin Concent 34.4 32-36 g/dl RDW Standard Deviation 39.6 36.4-46.3 fL RDW Coefficient of Variation 11.8 11.5-14.5 % Platelet Count 274 130-400 K/uL Mean Platelet Volume 9.9 7.4-10.4 fL Assessment & Plan POD # 3 s/p laparoscopic appendectomy with drain placement for perforated appendicitis - vitals stable afebrile last 24 hours - leukocytosis resolved - pain mild-moderate and controlled, improving - no nausea or vomiting - Culture positive for streptococcus intermedius, no sensitivities Plan: Continue current pain management Continue IV fluids , decrease to 50 mls/hr Continue IV Antibiotics until discharge and then will switch to oral Augmentin for 14 days Appreciate Infectious disease input advance diet as tolerated Continue Colace 100 mg BID PO JESSI drain to bulb suction, will be discharged home with drain, JESSI drain teaching Encourage OOB to chair and ambulation Incentive spirometry SCDs Discharge home tomorrow morning, Dr. Champagne to cover this weekend Dr. Mayfield has seen and examined patient, agrees with above
[2017-03-11] MEDS ORDERED: OXYC-57 PO (10:09)
--- NOTE | 2017-03-11 10:15 | Discharge Instructions ---
Discharge Instructions Date of Service Mar 11, 2017. Admission Reason for Admission: Perforated Appendicitis Discharge Discharge Diagnosis / Problem: same Discharge Goals Goal(s): Decrease discomfort, Improve function Activity Recommendations Activity Limitations: as noted below No heavy lifting over 20 pounds for 3-4 weeks No strenuous activity until cleared by surgeon No submerging incisions underwater for 2 weeks (no bathing, swimming, or hot tubs) No driving while taking narcotic pain medication or until you are pain free . Instructions / Follow-Up Instructions / Follow-Up You may shower when you get home Remove outer dressings and leave steri strips on incisions for 3 more days. They may fall off on their own that is okay. Walking and light activity is encouraged You will be discharged home with surgical drain, record how much output there is each day. Call office at [phone] to make an appointment for next Tuesday (03/15/17) for drain removal and follow-up visit. You will be given prescription for narcotic pain medication, only take if having moderate to severe pain. It may make you drowsy. You may take extra strength Tylenol or Ibuprofen as needed for pain. You will be given prescription for antibiotics for 14 days, please finish entire course and take with food. Current Hospital Diet Patient's current hospital diet: Full Liquid Diet Discharge Diet Recommended Diet: Regular Diet Procedures Procedures Performed: Laparoscopic Appendectomy with JESSI drain Pending Studies Studies pending at discharge: no List of pending studies: Appendix patholgoy will be reviewed at follow-up visit Work Instructions Return To Work: after follow-up (may need at least 2 weeks recovery) Medical Emergencies . Who to Call and When: Medical Emergencies: If at any time you feel your situation is an emergency, please call 911 immediately. . Non-Emergent Contact Non-Emergency issues call your: Primary Care Provider, Surgeon Call Non-Emergent contact if: you have a fever, temperature is above 101, your pain is not controlled, your pain is worsening, your pain is unusual for you, wound has increased drainage, wound has increased redness, wound has increased pain . "Provider Documentation" section prepared by Yasmine Garcia. . VTE Core Measure Inpt VTE Proph given/why not?: SCD's [place] Drug Monitoring Program Search Results: patient reviewed within database, no issues identified
[2017-03-11] MEDS ORDERED: AMOX875T PO (10:16)
[2017-03-11 15:18] VITALS: BP 102/69; PULSE 90; TEMP 37; O2SAT 94
[2017-03-11] MEDS: D5W AND 1/2NSS + 20MEQ KCL 1,000 ML IV SCH (17:25)
[2017-03-11 23:11] VITALS: BP 106/71; PULSE 97; TEMP 36.9; O2SAT 96
[2017-03-12] MEDS: AMPICILLIN/SULBACTAM SOD INJ 3,000 MG in SODIUM CHLORIDE 0.9% 100ML 100 ML IV SCH ×2 (02:07→08:00)
--- NOTE | 2017-03-12 06:06 | Surgery Progress Note ---
Surgery Progress Note Date of Service Mar 12, 2017. Subjective tolerating diet, afeb Objective Vital Signs: Date Time Temp Pulse Resp B/P (MAP) Pulse Ox O2 Delivery O2 Flow Rate FiO2 03/11/17 23:40 Room Air 03/11/17 23:11 36.9 97 18 106/71 (83) 96 Room Air 03/11/17 17:00 Room Air 03/11/17 15:18 37.0 90 18 102/69 (80) 94 Room Air 03/11/17 09:10 97 Room Air 03/11/17 07:46 36.8 97 20 118/80 (93) 97 Room Air 03/11/17 07:10 Room Air General Appearance: no apparent distress Respiratory/Chest: no respiratory distress Abdomen: non distended, soft Incision(s): drainage (expected) Laboratory Results: Results Past 24 Hours Test 03/11/17 08:14 Range/Units White Blood Count 8.24 4.8-10.8 K/uL Red Blood Count 4.57 4.2-5.4 M/uL Hemoglobin 14.6 12.0-16.0 g/dL Hematocrit 42.5 37-47 % Mean Corpuscular Volume 93.0 80-100 fL Mean Corpuscular Hemoglobin 31.9 25-34 pg Mean Corpuscular Hemoglobin Concent 34.4 32-36 g/dl RDW Standard Deviation 39.6 36.4-46.3 fL RDW Coefficient of Variation 11.8 11.5-14.5 % Platelet Count 274 130-400 K/uL Mean Platelet Volume 9.9 7.4-10.4 fL Assessment & Plan 03/12/17- pt is doing well- for d/c home on po atbx leave drain- f/u this week- surgery office
[2017-03-12 07:15] VITALS: BP 113/74; PULSE 93; TEMP 36.5; O2SAT 96
[2017-03-12 08:24] VITALS: BP 113/74; PULSE 93; TEMP 36.5; O2SAT 96
[2017-03-12] MEDS: DOCUSATE SODIUM 100 MG CAP PO SCH (09:00)
[2017-03-12] MEDS: OXYCODONE/ACETAMINOPHEN 5-325 TAB PO PRN (09:23)
--- NOTE | 2017-03-14 13:45 | Discharge Summary ---
Discharge Summary Dates Admission Date / Time: Mar 07, 2017 at 19:13 Discharge Date: Mar 12, 2017 Dispostion / Condition Discharge Disposition: Home Condition at Discharge: Good Principal Diagnosis (1) Perforated appendicitis Problem List (1) No significant active problems Consultations / Procedures Procedures: Laparoscopic appendectomy with placement of JESSI drain Pending Studies / Follow-Up None Appendix pathology will be reviewed at follow-up visit Medication Reconciliation New Medications: Amoxicillin & Pot Clavulanate (Augmentin 875-125 mg) 1 Tab Tab 1 TAB PO BID for 14 Days, #28 TAB Oxycodone/Acetaminophen 5MG/325MG (Percocet 5MG/325MG) Tab 1 TABLET PO Q4H PRN for Pain, #18 TAB Continued Medications: Control Pills ( Control Pills) Tab 1 TAB PO DAILY Citalopram Hydrobromide (Celexa) 20 Mg Tab 20 MG PO DAILY Admission HPI Per the Admitting provider: The patient is a 27 year old female who presents to the Emergency Room with complaints of worsening mid abdominal pain that began 5 days ago. She rates her pain an 8/10 in severity. When her pain began, it was occurring intermittently. However, two days ago it became constant. Her pain is exacerbated with bending down to her right side. Nothing has been making her pain better. She is also experiencing nausea. She denies any fevers, chills, nausea, vomiting, diarrhea, or abnormal urinary symptoms. She has not had much of an appetite but has been keeping up with her fluids. Her last menstrual cycle was two days ago. She has not taken any medications for her pain. She states that she has been evaluated in the past before for similar symptoms, but has not had any official diagnosis. I saw pt at ER, I reviewed history and physical exam with pt,pt is still have RLQ pain, Hospital Course (1) Perforated appendicitis Patient was taken to operating room for laparoscopic possible open appendectomy by Dr. Mayfield. Patient was found to have perforated appendicitis with abscess formation. She tolerated procedure well without any complications. Was transferred to recovery and then to medical/surgical floor for post operative care. She was started on IV fluids at 50 mls/hr, IV Cipro and Flagyl, IV Zofran as needed, PO Percocet with IV Dilaudid for breakthrough pain, Tylenol as needed for pain or fever, and JESSI drain to bulb suction. Diet was kept NPO except ice chips. She was evaluated in the morning of POD # 0 and was doing well. Pain controlled with Percocet every 4 hours, no nausea or vomiting. Preoperative pain resolved. She had low appetite. Urinating without difficulty. Diet was advanced to clear liquids. She was febrile and was given dose of Tylenol. IV antibiotics were continued. POD # 1 patient was feeling better, pain controlled, no nausea or vomiting, tolerated clear liquids. She again was febrile on POD # 1 , Tmax 38.7. Responded to Tylenol. Leukocytosis continued to improved each day but was still elevated. POD # 2 patient continued to improve, Leukocytosis improved, intermittent fevers, pain better controlled and minimal. Infectious disease consulted given fevers despite decreasing leukocytosis and IV antibiotics. Cultures showed strep intermedius. No sensitivities. Infectious disease recommended Unasyn instead of Cipro/ Flagyl. JESSI drain was continued. Diet advanced to full liquids. POD # 3 leukocytosis resolved, pain minimal and controlled tolerating full liquids. Jessi drain with serous output. + bowel function. Patient was kept one more evening for IV antibiotics. She was discharged home on POD # 4 in stable condition with the JESSI drain kept and to be removed later in the week. Discharge Instructions as given to patient Copies To Primary Care Provider: Rosalinda Resendez DO.
== END 2017-03-12 10:00 | disposition home or self-care (01) | DRG 340 ==
LOC: C.EDB 09:15 → C.MSW 19:13 → ENRESERV 20:12
PROVIDERS: ADMIT Surgery; ATTEND Surgery
PROC: 0DTJ4ZZ Resection of Appendix, Percutaneous Endoscopic Approach (ICD-10-PCS; principal; 2017-03-07 13:30)
DX: K35.3 Acute appendicitis with localized peritonitis (principal); R50.81 Fever presenting with conditions classified elsewhere; B95.4 Other streptococcus as the cause of diseases classified elsewhere; F41.9 Anxiety disorder, unspecified; F32.9 Major depressive disorder, single episode, unspecified; Z79.3 Long term (current) use of hormonal contraceptives; Z79.899 Other long term (current) drug therapy

== ENCOUNTER 2020-05-10 23:50 | Inpatient (IN) ==
--- NOTE | 2020-05-10 23:58 | History & Physical Report ---
Date of Service May 10, 2020 Assessment & Plan (1) Labor, prolonged latent phase: will observe for labor, ambulate with intermittent monitoring. fhts categ 1. recheck in about 2hr. History of Present Illness Chief Complaint: regular ctx Primary Care Provider: Rosalinda Resendez, DO 30yo at 40+wks ega presents to L&D with above cc. Patient noted ctx all day and back pain. They down in afternoon but then picked up again and called when q5min apart and advised to come in. No rom, no vb. +FM PNC c/b 1. Prior preg with fetus with digeorge syndrome, terminated at 22wks, this preg, low risk for digeorge syndrome on panorama PNL RH pos, RI, GBS neg. OBH: 22wk termination GYNH: nl paps no stds. Allergies Allergy/AdvReac Type Severity Reaction Status Date / Time No Known Allergies Allergy Verified 05/08/20 12:02 Home Medications Medication Instructions Recorded Confirmed Type prenat.vits,maria,fsq-xmex-drqde 1 tab PO DAILY 09/20/19 05/11/20 History Patient History Medical History (Updated 05/11/20 @ 00:28 by Anusha Cabello MD, FACOG) Encounter for elective termination of 2019 Hx of varicella Perforated appendicitis Surgical History (Updated 09/20/19 @ 09:57 by Odalys Spotts) History of appendectomy S/P dilatation and curettage D&E 2019 Family History (Updated 09/20/19 @ 09:57 by Odalys Spotml) Other No pertinent family history Social History (Updated 09/20/19 @ 09:59 by Odalys Spotts) Smoking Status: Never smoker Hx Alcohol Use: No Hx Substance Use: No Preferred Language: Spanish Communication Ability: Effective Beliefs That Will Affect Care: None marital status: marital status details: Yessica Cuevas (30) [phone] Current Living Situation: Spouse Current Living Situation Comment: lives with spouse, 2 dogs, 2 cats, does not change litter current occupational status: unemployed Other Information That Helps Us Care for You: No Feels Safe at Home: Yes Safety Concerns: Feels Safe At This Time Review of Systems no fever Physical Exam Constitutional: WD/WN, vitals as above Gastrointestinal (Abdomen): soft gravid nt Musculoskeletal: noedema Neurologic: grossly normal Psychiatric: A+Ox3, euthymic affect Genitourinary: OB Exam Abdomen: + estimated weight (7-8#) Manual OB Exam: + cervical dilation (1+), + cervical effacement 90% and + station -2 OB Exam Monitor Tracing: + external FHT monitor used (130 mod variability), + external uterine monitor used (q2), + category I and + normal FHT variability Coding Level of Care Code None Diagnoses Labor, prolonged latent phase O63.0
[2020-05-11] MEDS ORDERED: OXYTOCIN 30 UNITS/500 ML BAG IV PRN ×3 (02:37→13:23)
[2020-05-11] MEDS ORDERED: BUTORPHANOL TARTRATE 1 MG/ML VIAL IV ONE (02:40)
[2020-05-11] MEDS: LACTATED RINGER'S 1,000 ML IV PRN ×3 (03:05→11:32)
[2020-05-11 03:24] LABS: Hematocrit (blood only) 39.3 % (37-47); Hemoglobin 13.9 g/dL (12.0-16.0); Mean Corpuscular Hemoglobin 32.6 pg (25-34); Mean Corpuscular Hgb Conc 35.4 g/dL (32-36); Mean Platelet Volume 10.3 fL (7.4-10.4); Nucleated RBC # (auto) 0.02 K/uL (0-0); Nucleated RBC % (auto) 0.1 %; Platelet Count 225 K/uL (130-400); RDW Coefficient of Variation 13.2 % (11.5-14.5); RDW Standard Deviation 43.8 fL (36.4-46.3); Red Blood Count 4.27 M/uL (4.2-5.4); White Blood Count 16.04 K/uL (4.8-10.8)
--- NOTE | 2020-05-11 04:17 | Labor Progress Brief Note ---
Date of Service May 11, 2020 Subjective Reason For Note: Routine Evaluation pt noting some sense of ctx. she feels less pain with stadol. she is not sure about future pain mgmt. Assessment & Plan (1) Labor, prolonged latent phase: (2) Post term over 40 weeks: will see how arom helps labor pattern, discussed with patient possible need to add pitocin. she can have pain mgmt with labor epidural when she wants it. after stadol, it seems her pattern is more irregular. she would like to wait on epidural. Admission and Anticipated Discharge Date Admission Date: May 11, 2020 Physical Exam Constitutional: WD/WN, vitals as above Genitourinary: Manual OB Exam: + cervical dilation 3 cm, + cervical effacement 100%, + station -2 and + amniotic fluid (arom) clear OB Exam Monitor Tracing: + external FHT monitor used (130 mod variability), + external uterine monitor used (q3-5), + category I and + normal FHT variability after arom, decel to 80s, recovered with lateral positioning. Results & Data ([facility]) Vital Signs (Past 12 Hours) Vital Signs Temp Pulse Resp BP 05/11/20 04:05 94 H 126/82 05/11/20 04:04 98.4 F 18 05/11/20 00:01 97.7 F 117 H 18 126/82 05/10/20 23:58 97.7 F 117 H 18 126/82 Coding Level of Care Code None Diagnoses Labor, prolonged latent phase O63.0 Post term over 40 weeks O48.0
[2020-05-11] MEDS ORDERED: ePHEDrine sulfate 50 MG/ML AMP ONE (04:49)
[2020-05-11] MEDS ORDERED: fentaNYL citrate 100 MCG/2 ML VIAL ONE ×2 (04:49→08:20)
[2020-05-11] MEDS ORDERED: SODIUM CHLORIDE 0.9% INJ 10 ML VIAL ONE ×2 (04:49→08:19)
[2020-05-11] MEDS ORDERED: BUPIVACAINE 0.25% 30 ML VIAL ONE ×2 (04:49→08:19)
[2020-05-11] MEDS ORDERED: fentaNYL 2MCG/ML ROPIVACAINE 1.25MG/ML 100 ML BAG EPI ONE (04:49)
--- NOTE | 2020-05-11 05:34 | Anesthesiology Consultation ---
Date of Service May 11, 2020 Assessment & Plan Chart Review Chart Review: Acceptable Risk for Labor Epidural Consults Requested none History Height/Weight Height: 5 ft 4 in Weight: 80.739 kg Allergies Allergy/AdvReac Type Severity Reaction Status Date / Time No Known Allergies Allergy Verified 05/08/20 12:02 Medications Home Medications Medication Instructions Recorded Confirmed Last Taken prenat.vits,maria,ywp-pflh-gupcl 1 tab PO DAILY 09/20/19 05/11/20 05/10/20 Active Medications Generic Name Dose Route Start Last Admin Trade Name Freq PRN Reason Stop Dose Admin Lactated Ringer's 1,000 mls @ 125 mls/hr 05/11/20 02:37 05/11/20 05:02 Lr IV 05/13/20 02:36 125 mls/hr .Q8H PRN Administration L&D Protocol Protocol Past Medical History Medical History Encounter for elective termination of 2019 Hx of varicella Perforated appendicitis Past Family History Family History Other No pertinent family history Past Surgical History Surgical History History of appendectomy S/P dilatation and curettage D&E 2019 Social History Smoking Status: Never smoker Hx Alcohol Use: No Hx Substance Use: No Physical Exam Vital Signs Last Vital Signs Temp 36.8 C 05/11/20 04:46 Pulse 125 H 05/11/20 05:31 Resp 18 05/11/20 04:46 BP 124/77 05/11/20 05:31 Pulse Ox 95 05/11/20 05:29 Testing Laboratory Results 05/11/20 02:50
[2020-05-11] MEDS ORDERED: NALOXONE HCL 1 MG in SODIUM CHLORIDE 0.9% 1000ML 1,000 ML IV PRN (05:35)
[2020-05-11] MEDS ORDERED: ePHEDrine sulfate 50 MG/ML AMP IV PRN (05:35)
[2020-05-11] MEDS ORDERED: diphenhydrAMINE 50 MG/ML VIAL IV PRN (05:35)
[2020-05-11] MEDS ORDERED: fentaNYL 2MCG/ML ROPIVACAINE 1.25MG/ML 100 ML BAG EPI PRN (05:35)
[2020-05-11] MEDS ORDERED: NALOXONE HCL 0.4 MG/1 ML VIAL/CARP IV PRN (05:35)
--- NOTE | 2020-05-11 08:29 | Communication Note ---
Date of Service: May 11, 2020 pt. c/o pain 09/11; at 0825,pt. epidural cath bolused w/ 12 ml 0.17% bupivacaine + 100 mcgs fentanyl w/ incremental aspirations and injections;neg. asp. for blood or csf; vital signs stable;
--- NOTE | 2020-05-11 09:26 | Labor Progress Brief Note ---
Date of Service May 11, 2020 Subjective Reason For Note: Other (strip review) Assessment & Plan (1) Post term over 40 weeks: (2) Labor, prolonged latent phase: cont with pit, fhts categ 1 Admission and Anticipated Discharge Date Admission Date: May 11, 2020 Physical Exam Genitourinary: OB Exam Monitor Tracing: + external FHT monitor used (130 mod variability), + external uterine monitor used (q2-3), + category I and + normal FHT variability pit at 11 Results & Data ([place]) Vital Signs (Past 12 Hours) Vital Signs Temp Pulse Resp BP Pulse Ox 05/11/20 09:20 84 96 05/11/20 09:15 86 96 05/11/20 09:10 97 H 95 05/11/20 09:05 90 97 05/11/20 09:00 96 H 96 05/11/20 08:55 98.6 F 100 H 16 96 05/11/20 08:54 96 H 94 05/11/20 08:50 93 H 95 05/11/20 08:45 116 H 96 05/11/20 08:42 105 H 92 05/11/20 08:40 108 H 96 05/11/20 08:35 105 H 96 05/11/20 08:30 98 H 127/82 96 05/11/20 08:28 97 H 128/86 05/11/20 08:26 100 H 125/86 05/11/20 08:25 101 H 96 05/11/20 08:19 104 H 96 05/11/20 08:14 103 H 97 05/11/20 08:12 100 H 158/85 H 05/11/20 08:09 97 H 97 05/11/20 08:05 100 H 93 05/11/20 08:04 94 H 96 05/11/20 07:59 94 H 97 05/11/20 07:56 112 H 16 120/77 93 05/11/20 07:54 94 H 97 05/11/20 07:49 96 H 95 05/11/20 07:44 102 H 95 05/11/20 07:43 99 H 94 05/11/20 07:39 100 H 97 05/11/20 07:37 92 H 121/79 05/11/20 07:34 94 H 96 05/11/20 07:33 96 H 125/80 05/11/20 07:29 109 H 117/76 95 05/11/20 07:26 100 H 94 05/11/20 07:24 99 H 119/80 95 05/11/20 07:19 97 H 96 05/11/20 07:18 101 H 94 05/11/20 07:17 101 H 120/79 05/11/20 07:14 100 H 95 05/11/20 07:13 100 H 127/82 05/11/20 07:12 110 H 92 05/11/20 07:09 99 H 95 05/11/20 07:07 104 H 131/87 05/11/20 07:04 101 H 97 05/11/20 07:02 98.2 F 93 H 16 138/91 05/11/20 06:59 103 H 97 05/11/20 06:58 98 H 131/81 05/11/20 06:54 83 96 05/11/20 06:52 86 111/69 94 05/11/20 06:49 83 113/73 95 05/11/20 06:46 87 94 05/11/20 06:44 82 95 05/11/20 06:43 117 H 95/71 L 05/11/20 06:41 86 92 05/11/20 06:39 106 H 93 05/11/20 06:37 118 H 94/56 L 05/11/20 06:35 88 94 05/11/20 06:34 98 H 94 05/11/20 06:33 90 107/69 05/11/20 06:29 89 93 05/11/20 06:28 98 H 94 05/11/20 06:27 100 H 101/68 05/11/20 06:24 122 H 97 07 06:23 126 H 79/48 L 05/11/20 06:19 127 H 110/76 96 05/11/20 06:14 134 H 96 05/11/20 06:12 121 H 96/63 L 05/11/20 06:09 107 H 97 05/11/20 06:08 113 H 109/73 05/11/20 06:04 123 H 96 05/11/20 06:02 118 H 102/61 05/11/20 05:59 97 H 96 05/11/20 05:57 131 H 116/64 05/11/20 05:54 125 H 96 02/07/21 05:52 129 H 109/77 05/11/20 05:49 124 H 95 05/11/20 05:47 102 H 119/78 05/11/20 05:44 110 H 96 05/11/20 05:43 101 H 111/71 05/11/20 05:39 113 H 96 05/11/20 05:37 108 H 126/78 05/11/20 05:34 102 H 96 05/11/20 05:31 125 H 124/77 05/11/20 05:29 105 H 123/79 95 05/11/20 05:27 117 H 90/55 L 05/11/20 05:25 127 H 109/55 L 05/11/20 05:24 136 H 94 05/11/20 05:23 137 H 123/94 05/11/20 05:21 105 H 124/86 05/11/20 05:19 107 H 96 05/11/20 05:14 116 H 96 05/11/20 05:09 105 H 96 05/11/20 04:46 98.2 F 103 H 18 111/71 05/11/20 04:05 94 H 126/82 05/11/20 04:04 98.4 F 18 05/11/20 00:01 97.7 F 117 H 18 126/82 05/10/20 23:58 97.7 F 117 H 18 126/82 Coding Level of Care Code None Diagnoses Post term over 40 weeks O48.0 Labor, prolonged latent phase O63.0
--- NOTE | 2020-05-11 12:02 | Labor Progress Brief Note ---
Date of Service May 11, 2020 Subjective Reason For Note: Routine Evaluation Assessment & Plan (1) Post term over 40 weeks: good cx change, c/w pit. expect 2nd stage soon Admission and Anticipated Discharge Date Admission Date: May 11, 2020 Physical Exam Constitutional: WD/WN, vitals as above Genitourinary: Manual OB Exam: + cervical dilation (ant lip), + cervical eff acement 100% and + station + 2 OB Exam Monitor Tracing: + external FHT monitor used (130 mod variability, reactive ), + external uterine monitor used (q2), + category I and + normal FHT variability pit at 15 Results & Data ([facility]) Vital Signs (Past 12 Hours) Vital Signs Temp Pulse Resp BP Pulse Ox 05/11/20 11:55 102 H 97 05/11/20 11:50 107 H 96 05/11/20 11:45 98 H 96 05/11/20 11:40 104 H 97 05/11/20 11:35 104 H 97 05/11/20 11:30 119 H 96 05/11/20 11:25 116 H 97 05/11/20 11:20 89 95 05/11/20 11:15 132 H 98 05/11/20 11:10 114 H 97 05/11/20 11:05 100 H 97 05/11/20 11:00 95 H 98 05/11/20 10:59 98.6 F 16 05/11/20 10:55 104 H 97 05/11/20 10:50 91 H 97 05/11/20 10:45 102 H 97 05/11/20 10:40 89 97 05/11/20 10:35 107 H 97 05/11/20 10:30 95 H 96 05/11/20 10:25 114 H 97 05/11/20 10:20 98 H 95 05/11/20 10:15 97 H 96 05/11/20 10:10 92 H 97 05/11/20 10:05 99 H 97 05/11/20 10:00 114 H 97 05/11/20 09:55 85 16 97 05/11/20 09:50 96 H 95 05/11/20 09:45 94 H 96 05/11/20 09:40 91 H 97 05/11/20 09:37 93 H 93 05/11/20 09:35 91 H 95 05/11/20 09:30 90 96 05/11/20 09:25 94 H 96 05/11/20 09:20 84 96 05/11/20 09:15 86 96 05/11/20 09:10 97 H 95 05/11/20 09:05 90 97 05/11/20 09:00 96 H 96 05/11/20 08:55 98.6 F 100 H 16 96 05/11/20 08:54 96 H 94 05/11/20 08:50 93 H 95 05/11/20 08:45 116 H 96 05/11/20 08:42 105 H 92 05/11/20 08:40 108 H 96 05/11/20 08:35 105 H 96 05/11/20 08:30 98 H 127/82 96 05/11/20 08:28 97 H 128/86 05/11/20 08:26 100 H 125/86 05/11/20 08:25 101 H 96 05/11/20 08:19 104 H 96 05/11/20 08:14 103 H 97 05/11/20 08:12 100 H 158/85 H 05/11/20 08:09 97 H 97 05/11/20 08:05 100 H 93 05/11/20 08:04 94 H 96 05/11/20 07:59 94 H 97 05/11/20 07:56 112 H 16 120/77 93 05/11/20 07:54 94 H 97 05/11/20 07:49 96 H 95 05/11/20 07:44 102 H 95 05/11/20 07:43 99 H 94 05/11/20 07:39 100 H 97 05/11/20 07:37 92 H 121/79 05/11/20 07:34 94 H 96 05/11/20 07:33 96 H 125/80 05/11/20 07:29 109 H 117/76 95 05/11/20 07:26 100 H 94 05/11/20 07:24 99 H 119/80 95 05/11/20 07:19 97 H 96 05/11/20 07:18 101 H 94 05/11/20 07:17 101 H 120/79 05/11/20 07:14 100 H 95 05/11/20 07:13 100 H 127/82 05/11/20 07:12 110 H 92 05/11/20 07:09 99 H 95 05/11/20 07:07 104 H 131/87 05/11/20 07:04 101 H 97 05/11/20 07:02 98.2 F 93 H 16 138/91 05/11/20 06:59 103 H 97 05/11/20 06:58 98 H 131/81 05/11/20 06:54 83 96 05/11/20 06:52 86 111/69 94 05/11/20 06:49 83 113/73 95 05/11/20 06:46 87 94 05/11/20 06:44 82 95 05/11/20 06:43 117 H 95/71 L 05/11/20 06:41 86 92 05/11/20 06:39 106 H 93 05/11/20 06:37 118 H 94/56 L 05/11/20 06:35 88 94 05/11/20 06:34 98 H 94 05/11/20 06:33 90 107/69 05/11/20 06:29 89 93 05/11/20 06:28 98 H 94 05/11/20 06:27 100 H 101/68 05/11/20 06:24 122 H 97 05/11/20 06:23 126 H 79/48 L 05/11/20 06:19 127 H 110/76 96 05/11/20 06:14 134 H 96 05/11/20 06:12 121 H 96/63 L 05/11/20 06:09 107 H 97 05/11/20 06:08 113 H 109/73 05/11/20 06:04 123 H 96 05/11/20 06:02 118 H 102/61 05/11/20 05:59 97 H 96 05/11/20 05:57 131 H 116/64 05/11/20 05:54 125 H 96 05/11/20 05:52 129 H 109/77 05/11/20 05:49 124 H 95 05/11/20 05:47 102 H 119/78 05/11/20 05:44 110 H 96 05/11/20 05:43 101 H 111/71 05/11/20 05:39 113 H 96 05/11/20 05:37 108 H 126/78 05/11/20 05:34 102 H 96 05/11/20 05:31 125 H 124/77 05/11/20 05:29 105 H 123/79 95 05/11/20 05:27 117 H 90/55 L 05/11/20 05:25 127 H 109/55 L 05/11/20 05:24 136 H 94 05/11/20 05:23 137 H 123/94 05/11/20 05:21 105 H 124/86 05/11/20 05:19 107 H 96 05/11/20 05:14 116 H 96 05/11/20 05:09 105 H 96 05/11/20 04:46 98.2 F 103 H 18 111/71 05/11/20 04:05 94 H 126/82 05/11/20 04:04 98.4 F 18 05/11/20 00:01 97.7 F 117 H 18 126/82 Coding Level of Care Code None Diagnoses Post term over 40 weeks O48.0
[2020-05-11] MEDS ORDERED: ACETAMINOPHEN 325 MG TAB PO PRN (13:23)
[2020-05-11] MEDS ORDERED: oxyCODONE/ACETAMINOPHEN 5mg/325mg TAB PO PRN (13:23)
--- NOTE | 2020-05-11 13:25 | Delivery Summary ---
Vaginal Delivery Summary Date of Service May 11, 2020 Vaginal Delivery Summary and 2nd Degree LAC The patient dilated to complete and pushed to deliver a viable female Apgars 8 and 9 via over 2nd degree perineal laceration. Mouth and nose bulb suctioned at perineum. Shoulders and body delivered with ease. was vigorous and crying at . Cord clamped at 30 seconds of life and to maternal abdomen where the cord was then doubly clamped and cut. Placenta delivered spontaneously and intact, three-vessel cord. Hemostasis achieved with dilute pitocin and uterine massage and drainage of the bladder for approximately 300 cc under sterile conditions. Laceration repaired in usual fashion in layers with 2-0, 3-0 vicryl. Cervix and sulci intact. EBL 300 cc. Mother and baby stable in recovery. [facility] [place] Delivery Charge Delivery Type Details: and 2nd Degree LAC
[2020-05-11] MEDS ORDERED: DIPHTHERIA/TETANUS/PERTUSSIS 0.5 ML SYR/VIAL IM ONE (13:30)
[2020-05-11] MEDS ORDERED: SUPERCREAM 0.870% 15 GM JAR EXT PRN (13:30)
[2020-05-11] MEDS ORDERED: HYDROCORTISONE ACETATE 25 MG SUPP PR PRN (13:30)
[2020-05-11] MEDS ORDERED: BENZOCAINE 20% AER SPR 82.5 GM CAN EXT PRN (13:30)
[2020-05-11] MEDS ORDERED: OXYTOCIN 20 UNITS in LACTATED RINGER'S 1,000 ML IV SCH (13:30)
--- NOTE | 2020-05-11 15:16 | Anesthesia Procedure Note ---
Date of Service May 11, 2020 Anesthesia Post Epidural Note Vital Signs Vital Signs: Temp Pulse Resp BP Pulse Ox 37.0 C 108 H 20 115/75 94 05/11/20 10:59 05/11/20 14:36 05/11/20 14:05 05/11/20 14:36 05/11/20 13:15 Pain Intensity Right Abdomen: Pain Intensity: 8 Notes Mental Status: alert / awake / arousable Nausea / Vomiting: adequately controlled Pain: adequately controlled Airway Patency, RR, SpO2: stable & adequate BP & HR: stable & adequate Hydration State: stable & adequate Neuraxial Anesthesia: was administered and sensory block is resolving Anesthetic Complications: no major complications apparent Epidural: Removed without complications and With tip intact
[2020-05-11] MEDS: IBUPROFEN 600 MG TAB PO PRN ×2 (17:01→20:52)
[2020-05-11] MEDS: DOCUSATE SODIUM 100 MG CAP PO SCH (20:52)
[2020-05-12] MEDS: IBUPROFEN 600 MG TAB PO PRN ×4 (02:12→21:14)
--- NOTE | 2020-05-12 07:02 | Obstetrical Progress Note ---
Date of Service May 12, 2020 Assessment & Plan (1) care following vaginal delivery: doing well, routine care. rh pos, breast, ri. Day #:: 1 Subjective Ambulation: ambulating normally Voiding: no voiding problems Diet Tolerance:: regular diet Lochia:: Small Feeding Type:: breast feeding denies pain issues. doing well Physical Exam Constitutional WD/WN, vitals as above Respiratory normal respiratory effort, lungs clear to auscultation Cardiovascular Rate/Rhythm: regular rate and regular rhythm Gastrointestinal (Abdomen) Inspection/Auscultation: abdomen normal to inspection Percussion/Palpation: abdomen soft Fundus firm 1cm down Musculoskeletal nt calves Neurologic grossly normal Psychiatric A+Ox3, euthymic affect Results & Data ([facility]) Vital Signs (Past 12 Hours) Vital Signs Temp Pulse Resp BP Pulse Ox 05/12/20 03:45 97.9 F 85 16 110/78 97 05/11/20 23:30 98.1 F 85 16 114/77 97 05/11/20 19:50 98.4 F 97 H 18 127/80 98
[2020-05-12] MEDS: DOCUSATE SODIUM 100 MG CAP PO SCH ×2 (08:28→21:14)
[2020-05-13] MEDS: IBUPROFEN 600 MG TAB PO PRN (06:37)
--- NOTE | 2020-05-13 08:10 | Obstetrical Progress Note ---
Date of Service May 13, 2020 Assessment & Plan (1) care following vaginal delivery: PPD#2 doing well. Reviewed DC instructions. Followup office 6w. Subjective Ambulation: ambulating normally Voiding: no voiding problems Diet Tolerance:: regular diet Lochia:: Moderate Review of Systems All systems reviewed & are unremarkable except as noted in HPI & below Physical Exam Constitutional WD/WN, vitals as above no acute distress Respiratory normal respiratory effort Cardiovascular Rate/Rhythm: regular rate and regular rhythm Gastrointestinal (Abdomen) Inspection/Auscultation: abdomen normal to inspection; abdomen not distended Percussion/Palpation: abdomen soft Genitourinary OB Exam Abdomen: + fundal height Fundus: + firm; not tender Results & Data ([facility]) Vital Signs (Past 12 Hours) Vital Signs Temp Pulse Pulse Resp BP Pulse Ox 05/13/20 07:48 36.9 C 83 18 119/81 95 05/12/20 23:15 36.6 C 71 18 121/82
[2020-05-13] MEDS: DOCUSATE SODIUM 100 MG CAP PO SCH (08:45)
== END 2020-05-13 12:25 | disposition home or self-care (01) | DRG 807 ==
LOC: OPB 23:50 → 4S1 23:54 → 4S2 05-11 16:25

== ENCOUNTER 2023-12-19 05:45 | Inpatient (IN) ==
--- NOTE | 2023-12-13 15:12 | Anesthesiology Consultation ---
Date of Service December 13, 2023 Assessment & Plan (1) Encounter for pre-operative examination: Chart Review Chart Review: Acceptable Risk for Surgery and Patient NOT seen in Pre Admission Testing -C/S scheduled in OR 2/2 placenta previa. Pt had labor epidural 05/11/2020: L3-4 x 1 attempt without issue. Pt also had diagnostic laparoscopy 01/10/23: GA: Huynh#2, ETT#7.0 oral, Gr View 2 Infectious Disease screening: Per PAT nursing assessment on 12/13/23 No known infectious disease contacts in past 10 days or current infectious disease symptoms. No recent travel outside the country. CBC ordered for AM of surgery History Surgery Operation Date: 12/19/23 07:30 Proposed Procedures p Section in OR - Lulu Rivas DO Height/Weight Height: 5 ft 4 in Weight: 80.286 kg Allergies Allergy/AdvReac Type Severity Reaction Status Date / Time No Known Allergies Allergy Verified 12/13/23 13:37 Medications Home Medications Medication Instructions Recorded Confirmed Last Taken prenat.vits,maria,dhd-nmug-hiesl 1 tab PO QAM 09/20/19 12/13/23 01/03/23 omeprazole 40 mg capsule,delayed 40 mg PO HS 01/03/23 12/13/23 01/10/23 02:00 release sertraline 100 mg tablet (Zoloft) 100 mg PO QAM 01/03/23 12/13/23 01/10/23 09:00 doxylamine succinate [Unisom 1 tab PO HS 05/23/23 12/13/23 Unknown (doxylamine)] pyridoxine (vitamin B6) 1 tab PO HS 05/23/23 12/13/23 Unknown levothyroxine 25 mcg tablet 25 mcg PO QAM #30 tabs 12/09/23 12/13/23 Unknown (Synthroid) magnesium 200 mg tablet 200 mg PO HS 12/13/23 12/13/23 Unknown Past Medical History Medical History (Updated 12/13/23 @ 15:07 by Madelin Arreguin PA-C) Anxiety and depression Common migraine without aura resolved, no issues in years History of chicken pox Hx of endometriosis Hypothyroidism Nausea and vomiting after administration of anesthetic agent Placenta previa reason for scheduled C/S in OR Past Family History Family History Mother Family history of reaction to anesthesia nausea/vomiting Denies family history of Ovarian cancer Breast cancer Colorectal cancer Uterine cancer Past Surgical History Surgical History (Updated 12/13/23 @ 15:07 by Madelin Arreguin PA-C) History of appendectomy perforated appendix History of wisdom tooth extraction S/P dilatation and curettage D&E 2020 S/P laparoscopy diagnostic laparoscopy 01/10/23: GA: Huynh#2, ETT#7.0 oral, Gr View 2 Social History Smoking Status: Never smoker Do You Dip or Chew Tobacco: No Hx Alcohol Use: No Alcohol type: beer and wine alcohol intake frequency: a few times a month Hx Substance Use: No substance use type: does not use Lab Results Anesthesia Preop Results Results Anesthesia Widget: TSH 1.866 uIu/ml (0.300-4.500) 10/28/23 Urine Color Yellow 10/14/23 Urine Appearance Clear (Clear) 10/14/23 Urine pH 7.5 (4.5-7.5) 10/14/23 Urine Specific Fitzhugh 1.008 (1.000-1.030) 10/14/23 Urine Protein Negative (Negative) 10/14/23 Urine Glucose (UA) Negative (Negative) 10/14/23 Urine Ketones Negative (Negative) 10/14/23 Urine Blood Negative (Negative) 10/14/23 Urine Nitrite Negative (Negative) 10/14/23 Urine Bilirubin Negative (Negative) 10/14/23 Urine Urobilinogen Negative (Negative) 10/14/23 Urine Leukocyte Esterase Negative (Negative) 10/14/23
--- NOTE | 2023-12-13 17:17 | History & Physical Report ---
Date of Service December 13, 2023 Assessment & Plan (1) Encounter for pre-operative examination: Plan Plan for delivery via section at 37w d/t placenta previa. Informed consent discussed in detail, RBA reviewed. Will plan for Main OR delivery d/t placenta previa and will have 2u PRBC available d/t hemorrhage risk. History of Present Illness Chief Complaint: Planned section Primary Care Provider: Rosalidna Resendez, DO 33yo with EDC 01/06/24. 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 Plan for delivery at 37w0d in main OR. C/S SCHEDULED FOR 12/19/[address] FERNANDEZ AND [address] COLLADO ASSIST IN THE MAIN OR Allergies Allergy/AdvReac Type Severity Reaction Status Date / Time No Known Allergies Allergy Verified 12/13/23 13:37 Home Medications Medication Instructions Recorded Confirmed Type prenat.vits,maria,egx-uani-hugiv 1 tab PO QAM 09/20/19 12/13/23 History omeprazole 40 mg capsule,delayed 40 mg PO HS 01/03/23 12/13/23 History release sertraline 100 mg tablet (Zoloft) 100 mg PO QAM 01/03/23 12/13/23 History doxylamine succinate [Unisom 1 tab PO HS 05/23/23 12/13/23 History (doxylamine)] pyridoxine (vitamin B6) 1 tab PO HS 05/23/23 12/13/23 History levothyroxine 25 mcg tablet 25 mcg PO QAM #30 tabs 12/09/23 12/13/23 Rx (Synthroid) magnesium 200 mg tablet 200 mg PO HS 12/13/23 12/13/23 History Patient History Medical History (Updated 12/13/23 @ 15:07 by Madelin Arreguin PA-C) Placenta previa reason for scheduled C/S in OR Hx of endometriosis Common migraine without aura resolved, no issues in years History of chicken pox Nausea and vomiting after administration of anesthetic agent Hypothyroidism Anxiety and depression Surgical History (Updated 12/13/23 @ 15:07 by Madelin Arreguin PA-C) S/P laparoscopy diagnostic laparoscopy 01/10/23: GA: Huynh#2, ETT#7.0 oral, Gr View 2 History of wisdom tooth extraction History of appendectomy perforated appendix S/P dilatation and curettage D&E 2020 Family History Mother Family history of reaction to anesthesia nausea/vomiting Denies family history of Ovarian cancer Breast cancer Colorectal cancer Uterine cancer Social History Smoking Status: Never smoker Second Hand Exposure: No; Do You Dip or Chew Tobacco: No; Hx Alcohol Use: No Hx Substance Use: No Preferred Language: [place]dean Communication Ability: Effective Visual Impairment: No Limitations Crystalizer Required: No Beliefs That Will Affect Care: None marital status: marital status details: Yessica Cuevas (33) [phone] Current Living Situation: Spouse and Family current occupational status: other current occupation: homemaker Feels Safe at Home: Yes Assistive Devices: Glasses Review of Systems All systems reviewed & are unremarkable except as noted in HPI & below Physical Exam Constitutional: WD/WN, vitals as above Respiratory: normal respiratory effort, lungs clear to auscultation no respiratory distress Cardiovascular: Rate/Rhythm: regular rate and regular rhythm Gastrointestinal (Abdomen): Inspection/Auscultation: abdomen normal to inspection Percussion/Palpation: abdomen soft; abdomen nontender Gravid. No s/s chorio or abruption. Skin: no rashes, warm and dry Psychiatric: A+Ox3, euthymic affect Coding Level of Care Code None Diagnoses Encounter for pre-operative examination Z01.818
[2023-12-19] MEDS: LACTATED RINGER'S 1,000 ML IV SCH (06:06)
[2023-12-19 06:16] LABS: Basophils # (auto) 0.04 K/uL (0.00-0.20); Basophils % (auto) 0.3 %; Eosinophils # (auto) 0.11 K/uL (0.00-0.50); Eosinophils % (auto) 0.9 %; Hematocrit (blood only) 35.9 % (37.0-47.0); Hemoglobin 12.6 g/dl (12.0-16.0); Immature Granulocytes # (auto) 0.07 K/uL (0.01-0.20); Immature Granulocytes % (auto) 0.6 %; Lymphocytes # (auto) 2.66 K/uL (1.20-3.40); Lymphocytes % (auto) 21.9 %; Mean Corpuscular Hemoglobin 31.5 pg (25.0-34.0); Mean Corpuscular Hgb Conc 35.1 g/dL (32.0-36.0); Mean Corpuscular Volume 89.8 fL (80.0-100.0); Mean Platelet Volume 10.2 fL (9.4-12.4); Monocytes # (auto) 0.87 K/uL (0.11-0.59); Monocytes % (auto) 7.2 %; Neutrophils # (auto) 8.37 K/uL (1.40-6.50); Neutrophils % (auto) 69.1 %; Platelet Count 208 K/uL (130-400); RDW Coefficient of Variation 12.9 % (11.5-14.5); RDW Standard Deviation 42.5 fL (36.4-46.3); White Blood Count 12.12 K/ul (4.8-10.8)
[2023-12-19] MEDS: ACETAMINOPHEN 500 MG TAB PO SCH (06:35)
[2023-12-19] MEDS ORDERED: OXYTOCIN 10 UNITS/ML VIAL ONE ×2 (06:52→06:59)
[2023-12-19] MEDS ORDERED: ONDANSETRON INJ 2 MG/ML 2 ML VIAL ONE (06:52)
[2023-12-19] MEDS ORDERED: ePHEDrine sulfate 50 MG/5 ML SYR ONE (06:55)
[2023-12-19] MEDS ORDERED: ePHEDrine sulfate 50 MG/ML AMP ONE (06:55)
[2023-12-19] MEDS ORDERED: fentaNYL citrate PF 100 MCG/2 ML VIAL ONE (07:14)
[2023-12-19] MEDS ORDERED: MoRPHine SULFATE PF 1 MG/ML 10 ML AMP/VIAL ONE (07:14)
[2023-12-19] MEDS ORDERED: BUPIVACAINE 0.5 % 5 MG/1 ML PF 10ML VIAL ONE (07:16)
--- NOTE | 2023-12-19 07:20 | History & Physical Bridge Note ---
Date of Service December 19, 2023 History & Physical Bridge Note I have examined the patient, reviewed the History & Physical and in the interval since the performance of the History & Physical I have noted the following changes of clinical significance: no changes noted
[2023-12-19] MEDS: CITRIC ACID/SODIUM CITRATE 15 ML UDC PO SCH (07:31)
[2023-12-19] MEDS: ceFAZolin 2,000 MG in SYRINGE 0 ML IV SCH (07:34)
[2023-12-19 08:32] LABS: Base Excess Cord Arterial Bld -2.2 mEq/L (-9-1.8); CO2 Cord Arterial Blood 58 mmHg (39.1-73.5); HCO3 Cord Arterial Blood 26 mmol/L (19.7-28.5); Oxygen Sat Cord Arterial Blood < 60.0 % (<60); PO2 Cord Arterial Blood < 20 mmHg (4.1-31.7); pH Cord Arterial Blood 7.26 (7.1-7.38)
[2023-12-19 08:35] LABS: Base Excess Cord Venous Blood -3.2 mEq/L (-7.7-1.9); Cord Venous Blood HCO3 24 mmol/L (18.4-26.8); Cord Venous Blood PCO2 48 mmHg (30.4-57.2); Cord Venous Blood PO2 25 mmHg (14.1-43.3); O2 Saturation Cord Venous Bld < 60.0 % (<68)
[2023-12-19] MEDS ORDERED: PHENYLEPHRINE 100MCG/ML 10ML SYR IV ONE (08:55)
[2023-12-19] MEDS ORDERED: PHENYLEPHRINE HCL 10 MG/ML VIAL ONE (08:55)
--- NOTE | 2023-12-19 09:07 | Operative Report ---
Post Operative Report Pre & Post Diagnosis Operation Date: 12/19/23 07:30 Pre-Op Diagnosis: Placenta Previa Post-Op Diagnosis: Placenta Previa I identified the patient and participated in the time-out.: Yes Procedure Operation Date: 12/19/23 07:30 Actual Procedures p Primary Low Transverse Section in Operating Room, One live female born at 0812 - Lulu Rivas DO Surgeon Lulu Rivas DO Fusing Machine Tender Patricia Aquino MD Quantitative Blood Loss (QBL) 617 Findings Consistent with Post-Op Diagnosis Viable female , Apgars 7/8. Specimens placenta, cord blood, cord gas Drains hare clear yellow Anesthesia Type Spinal Complications none Disposition Accompanied Patient To Recovery: No Disposition: L&D Indications 33yo @ 37 06/08, scheduled primary due to placenta previa. Description of Procedure The patient was seen in her labor and delivery room, risks benefits and alternatives to surgery were reviewed. Informed consent obtained. Questions were answered. She was taken to the main operating room, spinal anesthesia was administered. She was then prepared and draped in the usual sterile fashion in the supine position with a leftward tilt. Timeout was confirmed. A Pfannenstiel skin incision was made with a scalpel, and carried through to the underlying layer of fascia. Fascia was nicked at midline, and this incision was extended bilaterally. The superior aspect of the fascial incision was grasped with Kevin clamps x2, elevated off the underlying rectus abdominis muscles, and dissected sharply and bluntly. In similar fashion, the inferior aspect of the fascial incision was dissected. The rectus abdominis muscles were , and the peritoneum was entered bluntly digitally. This was extended bilaterally. The bladder flap was taken down carefully using Metzenbaum scissors. Using a new scalpel, a low transverse uterine incision was created. Clear amniotic fluid noted. The was delivered from a cephalic presentation. The head delivered, followed by shoulders and body. Spontaneous cry on the field. The cord was doubly clamped and cut, and the infant was handed off to the waiting national dedicated truck driver. A segment was retained for cord gases. Cord blood was obtained. The placenta was delivered spontaneously intact. The uterus was exteriorized, and cleared of all clots and debris. The hysterotomy incision was reapproximated using 0 Vicryl in a running locked stitch. A second layer of the same suture was used to imbricate the incision. Posterior uterus was evaluated and normal. The uterus was returned to the abdomen, and gutters were cleared of clots and debris. Excellent hemostasis was observed. The fascial incision was reapproximated using 0 Vicryl in a running stitch. The subcutaneous tissue was irrigated, and reapproximated using 2-0 plain gut in a running stitch. The skin was reapproximated using 4-0 Vicryl in a running subcuticular stitch. Steri-Strips and a bandage were applied. The patient tolerated the procedure well, and will be taken to the recovery area in stable and good condition. I attest to the content of the Intraoperative Record and any orders documented therein. Any exceptions are noted below. OB Procedure Charges 76495
[2023-12-19] MEDS ORDERED: MEPERIDINE HCL 25 MG/ML CARP/VIAL IV PRN (09:10)
[2023-12-19] MEDS ORDERED: NALBUPHINE HCL INJ 10 MG/ML AMP IV PRN (09:10)
[2023-12-19] MEDS ORDERED: NALOXONE HCL 0.08 MG in SYRINGE 1.8 ML IV PRN (09:10)
[2023-12-19] MEDS ORDERED: NALOXONE HCL 1 MG in SODIUM CHLORIDE 0.9% 1,000 ML IV PRN (09:10)
[2023-12-19] MEDS ORDERED: LACTATED RINGER'S 500 ML IV PRN (09:10)
[2023-12-19] MEDS ORDERED: MoRPHine SULFATE 2 MG/ML CARP IV PRN (09:10)
[2023-12-19] MEDS ORDERED: NALOXONE HCL 0.4 MG/1 ML VIAL/CARP IV PRN (09:10)
[2023-12-19] MEDS ORDERED: ACETAMINOPHEN 1,000 MG/100 ML VIAL IV PRN (09:10)
[2023-12-19] MEDS ORDERED: ePHEDrine sulfate 50 MG/ML AMP IV PRN (09:10)
[2023-12-19] MEDS ORDERED: HYDROmorphone INJ 0.5 MG/0.5 ML SYR IV PRN (09:10)
[2023-12-19] MEDS ORDERED: NO NARCOTICS OR SEDATIVES SCH (09:15)
[2023-12-19] MEDS ORDERED: DC INTRASPINAL MORPHINE SCH (09:15)
[2023-12-19] MEDS ORDERED: MAGNESIUM HYDROXIDE SUSP 30 ML UDC PO PRN (09:49)
[2023-12-19] MEDS ORDERED: SENNA 8.6 MG TAB PO PRN (09:49)
[2023-12-19] MEDS ORDERED: CALCIUM CARBONATE 500 MG CHEWABLE TAB PO PRN (09:49)
[2023-12-19] MEDS ORDERED: ONDANSETRON INJ 2 MG/ML 2 ML VIAL IV PRN (09:49)
[2023-12-19] MEDS ORDERED: BENZOCAINE 20% SPRY 85 APPLN/85 GM CAN EXT PRN (09:49)
[2023-12-19] MEDS ORDERED: HYDROCORTISONE ACETATE 25 MG SUPP PR PRN (09:49)
[2023-12-19] MEDS: KETOROLAC 30 MG/ML VIAL IV PRN (09:57)
[2023-12-19] MEDS: OXYTOCIN 20 UNITS/LR 1,002 ML IV SCH (10:07)
--- NOTE | 2023-12-19 11:03 | Anesthesiology Progress Note ---
Date of Service December 19, 2023 Anesthesia Post Procedure Vital Signs Vital Signs: Temp Pulse Resp BP Pulse Ox 12/19/23 10:59 95 H 100 12/19/23 10:54 84 100 12/19/23 10:49 75 115/81 100 12/19/23 10:44 81 99 12/19/23 10:39 100 12/19/23 10:39 71 12/19/23 10:39 71 114/74 12/19/23 10:34 75 100 12/19/23 10:29 73 112/75 100 12/19/23 10:24 69 99 12/19/23 10:19 68 117/77 99 12/19/23 10:14 71 99 12/19/23 10:10 18 12/19/23 10:09 77 114/73 100 12/19/23 10:04 71 100 12/19/23 10:00 20 12/19/23 09:59 99 12/19/23 09:59 72 12/19/23 09:59 70 109/74 12/19/23 09:54 73 99 12/19/23 09:50 20 12/19/23 09:49 75 112/78 99 12/19/23 09:44 73 98 12/19/23 09:40 20 12/19/23 09:39 78 110/76 99 12/19/23 09:34 78 99 12/19/23 09:30 20 12/19/23 09:30 90 108/79 12/19/23 09:29 97 H 98 12/19/23 09:24 83 100 12/19/23 09:20 20 12/19/23 09:19 82 103/68 97 12/19/23 09:14 76 97 12/19/23 09:09 82 106/65 95 12/19/23 07:06 83 122/84 12/19/23 07:00 20 12/19/23 07:00 36.8 C 20 12/19/23 06:03 18 12/19/23 06:03 36.9 C 18 12/19/23 05:56 130 H 114/67 Pain Intensity Bilateral Abdomen: Pain Intensity: 2 Transfer of Care Handoff Completed per policy Notes Mental Status: alert / awake / arousable and participated in evaluation Patient Amnestic to Procedure: Yes Nausea / Vomiting: adequately controlled Pain: adequately controlled Airway Patency, RR, SpO2: stable & adequate BP & HR: stable & adequate Hydration State: stable & adequate Anesthetic Complications: no major complications apparent
[2023-12-19] MEDS: DIPHTHER/TETAN/PERTUS Vaccine (Tdap, Adol/Adult) 0.5mL IM ONE (11:42)
[2023-12-19] MEDS: SERTRALINE HCL 100 MG TABLET PO SCH (11:43)
[2023-12-19] MEDS: OXYTOCIN 20 UNITS/1002ML LR IV ONE (11:43)
[2023-12-19] MEDS: MoRPHine SULFATE PF 1 MG/ML 10 ML AMP/VIAL INT SPINAL ONE (11:46)
[2023-12-19] MEDS: SODIUM CHLORIDE 0.9% 1,000 ML IV SCH (11:46)
[2023-12-19] MEDS: ACETAMINOPHEN 325 MG TAB PO SCH (11:47)
[2023-12-19] MEDS: LEVOTHYROXINE SODIUM 25 MCG TABLET PO SCH (11:47)
[2023-12-19] MEDS: IBUPROFEN 600 MG TAB PO SCH (11:48)
[2023-12-19] MEDS: CARBOPROST TROMETHAMINE 250 MCG/ML AMPUL ONE (11:48)
[2023-12-19] MEDS: SIMETHICONE 80 MG CHEW PO SCH (14:32)
[2023-12-19] MEDS: DOCUSATE SODIUM 100 MG CAP PO SCH (21:08)
[2023-12-19] MEDS: diphenhydrAMINE 50 MG/ML VIAL IV PRN (23:43)
[2023-12-20] MEDS ORDERED: oxyCODONE HCL IR 5 MG TAB (IMMEDIATE RELEASE) PO PRN (03:10)
[2023-12-20] MEDS ORDERED: diphenhydrAMINE 50 MG/ML VIAL IV PRN (03:11)
[2023-12-20] MEDS ORDERED: HYDROmorphone INJ 0.5 MG/0.5 ML SYR IV PRN (03:11)
[2023-12-20] MEDS ORDERED: PROMETHAZINE 12.5 MG/50.5 ML BAG IV PRN (03:11)
[2023-12-20] MEDS: LACTATED RINGER'S 1,000 ML IV SCH (04:12)
[2023-12-20] MEDS: diphenhydrAMINE Capsule 25 MG CAP PO PRN (04:24)
[2023-12-20 06:19] LABS: Basophils # (auto) 0.04 K/uL (0.00-0.20); Basophils % (auto) 0.3 %; Eosinophils # (auto) 0.18 K/uL (0.00-0.50); Eosinophils % (auto) 1.3 %; Hematocrit (blood only) 31.8 % (37.0-47.0); Immature Granulocytes # (auto) 0.06 K/uL (0.01-0.20); Immature Granulocytes % (auto) 0.4 %; Lymphocytes # (auto) 1.78 K/uL (1.20-3.40); Lymphocytes % (auto) 12.9 %; Mean Corpuscular Hemoglobin 31.4 pg (25.0-34.0); Mean Corpuscular Hgb Conc 34.6 g/dL (32.0-36.0); Mean Corpuscular Volume 90.9 fL (80.0-100.0); Mean Platelet Volume 10.3 fL (9.4-12.4); Monocytes # (auto) 1.02 K/uL (0.11-0.59); Monocytes % (auto) 7.4 %; Neutrophils # (auto) 10.69 K/uL (1.40-6.50); Neutrophils % (auto) 77.7 %; Platelet Count 177 K/uL (130-400); RDW Coefficient of Variation 13.1 % (11.5-14.5); RDW Standard Deviation 42.8 fL (36.4-46.3); White Blood Count 13.77 K/ul (4.8-10.8)
--- NOTE | 2023-12-20 07:19 | Obstetrical Progress Note ---
Date of Service December 20, 2023 Assessment & Plan (1) Delivery by section of full-term : Plan: 1st POD foll Elective C section for Placenta previa Post op Hb: 11 gm% [place]'s Discontinued Bandage removed: Wound healthy Ambulation encouraged Breast feed encouraged Continue Normal Ob diet DC plan tomorrow. (2) Placenta previa: Admission and Anticipated Discharge Date Admission Date: December 19, 2023 Supervising Physician Co-Signing Physician Notes Resident Physician Supervision Note: I interviewed and examined the patient. Discussed with Dr. Espinosa and agree with findings and plan as documented in the note. Any exceptions or clarifications are listed here: POD#1 doing well. Continue routine postop care. Documented By: Lulu Rivas, Subjective 1st POD foll C section for Placenta previa No active complains Ambulation + Gas : passed Regular Ob diet Breast feeding: No issues Lochia: Moderate Review of Systems Review of Systems: As per HPI Physical Exam Physical Exam: General: Alert and oriented. No acute distress. CV: Regular rate and rhythm. No murmurs. Respiratory: CTA bilaterally. No rhonchi, wheezes, or crackles. No increased work of breathing. Abdomen: Positive bowel sounds. Soft, nontender, and nondistended. Uterus: Fundus firm and palpable few cm below umbilicus. Surgical scar clean and healing well. Lower extremities: No LE edema. No deep calf pain. Adam's negative bilaterally. Results & Data Vital Signs (Past 12 Hours) Vital Signs Temp Pulse Resp BP Pulse Ox O2 Del Method 12/20/23 03:30 37.0 C 77 18 126/82 98 Room Air 12/20/23 02:35 20 95 12/20/23 01:35 20 96 12/20/23 00:35 20 100 12/19/23 23:50 36.9 C 81 20 123/86 100 Room Air 12/19/23 23:35 20 100 12/19/23 22:35 20 100 12/19/23 21:35 20 99 12/19/23 20:35 20 99 12/19/23 19:35 20 99 12/19/23 19:35 37.2 C 79 20 126/81 99 Room Air Resident Activity Tracking Resident Involvement: Resident Care Provided Care Provided: OB Delivery
[2023-12-20 09:12] VITALS: RESP 16
[2023-12-20] MEDS: PRENATAL VITAMIN 1 TAB PO SCH (09:57)
[2023-12-20] MEDS: FERROUS SULFATE 325 MG TAB PO SCH (09:57)
[2023-12-20] MEDS: bisacodyL 5 MG TABEC PO SCH (21:34)
--- NOTE | 2023-12-21 07:42 | Obstetrical Progress Note ---
Date of Service December 21, 2023 Assessment & Plan (1) Delivery by section of full-term : Plan: 2nd POD foll Elective C section for Placenta previa Post op Hb: 11 gm% Wound healthy Ambulation: Done Breast feed encouraged Continue Normal Ob diet DC today. (2) Placenta previa: Admission and Anticipated Discharge Date Admission Date: December 19, 2023 Supervising Physician Co-Signing Physician Notes Resident Physician Supervision Note: I was present with [Name of resident] during the history and exam. I discussed the case with the resident and agree with the findings and plan as documented in the note. Any exceptions or clarifications are listed here: [None] Documented By: Austin Avilez MD, FACOG Subjective 2nd POD foll C section for Placenta previa No active complains Ambulation + Gas : passed Regular Ob diet Breast feeding: No issues Lochia: Moderate Review of Systems Review of Systems: As per HPI Physical Exam Physical Exam: General: Alert and oriented. No acute distress. CV: Regular rate and rhythm. No murmurs. Respiratory: CTA bilaterally. No rhonchi, wheezes, or crackles. No increased work of breathing. Abdomen: Positive bowel sounds. Soft, nontender, and nondistended. Uterus: Fundus firm and palpable few cm below umbilicus. Surgical scar clean and healing well. Lower extremities: No LE edema. No deep calf pain. Adam's negative bilaterally. Results & Data Vital Signs (Past 12 Hours) Vital Signs Temp Pulse Resp BP Pulse Ox O2 Del Method 12/21/23 00:15 36.8 C 77 16 122/82 96 Room Air Resident Activity Tracking Resident Involvement: Resident Care Provided Care Provided: OB Delivery
[2023-12-21 07:51] LABS: Hematocrit (blood only) 33.1 % (37.0-47.0); Hemoglobin 11.5 g/dl (12.0-16.0)
[2023-12-21] MEDS ORDERED: bisacodyL 10 MG SUPP PR PRN (08:51)
[2023-12-21 09:34] VITALS: BP 130/90; PULSE 86; TEMP 98.1; O2SAT 97
[2023-12-21] MEDS: ACETAMINOPHEN 325 MG TAB PO PRN (09:51)
[2023-12-21] MEDS: IBUPROFEN 600 MG TAB PO PRN (09:51)
--- NOTE | 2023-12-23 17:54 | Discharge Summary ---
Date of Service December 23, 2023 Admission HPI Per Admitting Provider 33yo with EDC 01/06/24. 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 Plan for delivery at 37w0d in main OR. C/S SCHEDULED FOR 12/19/[address] RIVAS AND DR[address] COLLADO ASSIST IN THE MAIN OR Admission Exam (Per Admitting) Constitutional WD/WN, vitals as above Respiratory normal respiratory effort, lungs clear to auscultation no respiratory distress Cardiovascular Rate/Rhythm: regular rate and regular rhythm Gastrointestinal (Abdomen) Inspection/Auscultation: abdomen normal to inspection Percussion/Palpation: abdomen soft; abdomen nontender Skin no rashes, warm and dry Psychiatric A+Ox3, euthymic affect Discharge Data Consultations 12/19/23 05:50 Consult Anesthesiology Stat Procedures Performed Operation Date: 12/19/23 07:30 Actual Procedures p Section in Operating Room, One live female born at 0812(Not Applicable) - Lulu Rivas, Hospital Course (1) Delivery by section of full-term infant: 2nd POD foll Elective C section for Placenta previa Post op Hb: 11 gm% Wound healthy Ambulation: Done Breast feed encouraged Continue Normal Ob diet DC today. (2) Placenta previa: Coding Level of Care Code None Diagnoses Delivery by section of full-term infant O82 Placenta previa O44.00
== END 2023-12-21 13:14 | disposition home or self-care (01) | DRG 788 ==
LOC: 4S1 05:45 → EDSTATUS 07:30 → 4E2 12:00
DX: Z3A.37 37 weeks gestation of pregnancy; E03.9 Hypothyroidism, unspecified; Z79.890 Hormone replacement therapy; O99.284 Endocrine, nutritional and metabolic diseases complicating childbirth; Z37.0 Single live birth; O44.03 Complete placenta previa NOS or without hemorrhage, third trimester